=== PATIENT | female | born 1940 | race Caucasian/White ===

== ENCOUNTER 2023-11-14 23:17 | Inpatient (IN) | payer OTHER, SELFPAY ==
[2023-11-14] VITALS (9 sets, daily range): BP systolic 133–191; BP diastolic 73–118; BMI 34.5
[2023-11-14 18:19] LABS: % Basophils 1.1 % (0-2); % Eosinophils 2.5 % (0-6); % Immature Granulocytes 0.3 % (0-0.5); % Lymphocytes 34.7 % (20.5-51.1); % Monocytes 5.1 % (1.7-9.3); % Neutrophils 56.3 % (42.2-75.2); Absolute Basophils 0.1 10^3/uL (0-0.2); Absolute Eosinophils 0.2 10^3/uL (0-0.7); Absolute Lymphocytes 2.2 10^3/uL (1.2-3.4); Absolute Monocytes 0.3 10^3/uL (0.1-0.6); Absolute Neutrophils 3.6 10^3/uL (1.4-6.5); Hematocrit 31.4 % (37.0-47.0); Hemoglobin 11.3 g/dL (12.0-16.0); Mean Corpuscular Hgb 29.6 pg (27.0-31.0); Mean Corpuscular Volume 82.2 fL (81.0-99.0); Mean Platelet Volume 8.9 fL (7.4-10.4); Nucleated Red Blood Cells % 0 %; Platelet Count 150 10^3/uL (130-400); Red Blood Cell Count 3.82 10^6/uL (4.20-5.40); Red Cell Dist. Width 13.4 % (11.5-14.5); White Blood Cell Count 6.3 10^3/uL (4.8-10.8)
[2023-11-14 18:41] LABS: ALT (SGPT) < 10 U/L (0-35); AST (SGOT) 25 U/L (14-36); Albumin 4.4 g/dl (3.5-5.0); Alkaline Phosphatase 100 U/L (38-126); Blood Urea Nitrogen 23 mg/dl (7-17); Calcium 10.1 mg/dl (8.4-10.2); Carbon Dioxide 22 mmol/L (22-30); Chloride 93 mmol/L (98-107); Estimated Creatinine Clearance 39 ml/min; Glucose 112 mg/dl (70-99); Potassium 4.1 mmol/L (3.5-5.1); Sodium 124 mmol/L (135-145); Total Bilirubin 0.6 mg/dl (0.2-1.3); eGFR 55.21
--- NOTE | 2023-11-14 19:49 | EDRN ---
Pt says she has had echoing and ringing in her ears for the past couple days. When pt speaks, she hears her voice echoing. Pt developed dizziness this afternoon and laid down then vomited. Since then, pt has had nausea and vomiting so she came to
the ED for evaluation. Pt denies cp, sob, abd pain, fever/chills/cough, urinary symptoms, change in appetite, hx of similar symptoms, headache, visual/speech disturbance, weakness. Moving head does not increase dizziness/nausea.
[2023-11-14 20:35] LABS: Urine Albumin Trace (Neg - Trace); Urine Bilirubin Negative (Negative); Urine Color Yellow; Urine Glucose Negative (Negative); Urine Ketone 1+ (Negative); Urine Leukocyte 2+ (Negative); Urine Nitrite Positive (Negative); Urine Occult Blood 2+ (Negative); Urine Urobilinogen Negative (Neg - 1+)
[2023-11-14 20:37] LABS: Urine Character Slightly Cloudy (Clear)
[2023-11-14 20:40] LABS: Osmolality Urine 420 mOsm/kg (300-900)
[2023-11-14 20:55] LABS: Urine Sodium 119 mmol/L (30-90)
[2023-11-14 20:58] LABS: Urine Bacteria Moderate (Negative); Urine Red Blood Cell 0-2 /HPF (0-2); Urine White Cell 50-60 /HPF (0-5)
[2023-11-14] MEDS: NSS 500 IV (21:03)
[2023-11-14] MEDS: ANTIVERT 25 MG PO (21:03)
--- NOTE | 2023-11-14 21:04 | ED.GENMED ---
History of Present Illness
General
Chief Complaint: Dizziness
Source: patient
Exam Limitations: none
Time Seen by Provider: 11/14/23 19:50
Nursing documentation reviewed up to this point in time: agreed with
History of Present Illness
History of Present Illness:
83-year-old female with past medical history of hypertension previous aortic valve replacement presenting to the emergency department with room spinning dizziness over the past day also had some echoing sensation to her ears bilaterally yesterday.
Had multiple episodes of vomiting today denies any diarrhea. Denies any numbness weakness change in vision or neck pain. Denies any injuries.
Review of Systems
Review of Systems
Allergies reviewed?: Yes
All Other Systems: ROS reviewed and negative except as documented in HPI and ROS
Phy Exam
Physical Exam
Physical Exam:
GENERAL: Alert , in no apparent distress
EYE: pupils equal and reactive no nystagmus
NECK: Supple, no significant adenopathy.
ENT: o/p clr, mmm.
CARDIAC: Regular rate and rhythm .
LUNGS: Clear breath sounds bilaterally, no acute respiratory distress, no wheezes/rales/rhonchi
ABDOMEN: Soft, without focal tenderness, no r/g, no cvat
NEUROLOGICAL: Alert and oriented, no focal neuro deficits 5-5 upper and lower extremity strength normal sensation when palpating bilaterally normal finger-nose and heel mercer no pronator drift
SKIN: Warm and dry, skin intact.
MUSCULOSKELETAL: No edema, well perfused.
PSYCH: Normal and appropriate interaction.
Course
Orders/Labs/Results
Orders:
Orders
11/14/23 18:05
Electrocardiogram (*1) Urgent
Reason for Study: Vertigo / Dizzy
EKG- Treatment ONCE
11/14/23 18:14
Complete Blood Count/With Diff Urgent
Comprehensive Metabolic Panel Urgent
11/14/23 20:23
Urinalysis Reflex To Culture Urgent
Date Specimen was Collected: 11/14/23
Time Specimen was Collected: 20:22
Urine Microscopic Reflex Cult Urgent
Urine Osmolality Random [Osmolality, Random Urine] Urgent
Date Specimen was Collected: 11/14/23
Time Specimen was Collected: 20:22
Urine Sodium Urgent
Date Specimen was Collected: 11/14/23
Time Specimen was Collected: 20:22
Urine Culture Urgent
DOROTHEA Source: U
Specimen Description:
Date Specimen was Collected: 11/14/23
Time Specimen was Collected: 20:
11/14/23 20:42
CT Head W/o Iv Contrast Urgent
Comment:
Reason For Exam: dizziness
Meclizine [Antivert] 25 mg PO NOW STA
11/14/23 20:43
0.9% Sodium Chloride 500 ml [Nss] 500 ml IV BOLUS
11/14/23 23:17
Admit/Transfer Patient As Directed
Co-Sign Provider:
Level of Care: Inpatient admission
Assign to:: Telemetry
Physician / Group: Nia
Diagnosis: Dizziness
Reason for Telemetry: Other
Other Reason for Telemetry: Electrolyte abnormality and dizziness
Date to Stop Telemetry: 11/16/23
Time to Stop Telemetry: 11:00
Reason for Hospitalization: Electrolyte abnormality and dizziness
Expected length of stay greater than two midnights?: Yes
ELOS- Estimated Length of Stay in days: 3
I certify the patient meets the requirements for IP care: Yes
11/14/23 23:18
Code Status As Directed
Resuscitation Status: Full Code
11/16/23 11:00
DC Protocol for Telemetry ONCE
Abnormal Lab Results
11/14/23 11/14/23
18:14 20:23
RBC 3.82 L 10^6/uL
(4.20-5.40)
Hgb 11.3 L g/dL
(12.0-16.0)
Hct 31.4 L %
(37.0-47.0)
Sodium 124 L mmol/L
(135-145)
Chloride 93 L mmol/L
(98-107)
BUN 23 H mg/dl
(7-17)
Glucose 112 H mg/dl
(70-99)
Urine Ketones 1+ A
(Negative)
Ur Occult Blood Reflex 2+ A
(Negative)
Urine Nitrite (Reflex) Positive A
(Negative)
Leukocyte Esterase Rfl 2+ A
(Negative)
Urine WBC (Reflex) 50-60 A /HPF
(0-5)
Urine Bacteria (Reflex) Moderate A
(Negative)
Urine Sodium 119 H mmol/L
(30-90)
11/14/23 18:14
11/14/23 18:14
Vital Signs
Initial and Last Documented VS:
Initial Vital Signs
Temp Pulse Resp BP Pulse Ox
98.5 F 83 16 186/76 97
11/14/23 18:06 11/14/23 18:06 11/14/23 18:06 11/14/23 18:06 11/14/23 18:06
Last Documented Vital Signs
Temp Pulse Resp BP Pulse Ox
98.5 F 81 15 143/87 99
11/14/23 18:06 11/14/23 23:00 11/14/23 23:00 11/14/23 23:00 11/14/23 19:30
MDM/Problems Addressed
MDM/Problems Addressed:
83-year-old female presenting to the emergency department with concerns of room spinning dizziness today made worse with motion and movement. Had episodes of vomiting earlier today. Had some mild symptoms yesterday as well. On arrival here blood
pressure is elevated but otherwise vital signs are normal. Labs showing low sodium level 124 and elevated BUN to creatinine ratio of 23:1. Patient was given fluids additionally was found to have findings potentially consistent with urinary tract
infection. She denies any specific urinary symptoms. EKG is normal. Patient was given meclizine for description of potential vertigo. Patient here with ongoing symptoms was given fluids CT scan without emergent findings. Concerning patient's
hyponatremia and ongoing symptoms plan to admit for further treatment and monitoring.
*Critical Care Note
Total Time (30-74mins, 75-104mins- exclusive of procedures): Not Applicable
ED Attending Note
-
Portions of this chart may have been created with voice recognition software.� Occasional wrong word or��sound alike� substitutions may have occurred due to the inherent limitations of voice recognition software.
Discharge Plan
Departure
Patient Disposition: Admit
Date of Disposition: 11/14/23
Time of Disposition: 23:37
Admit to: Telemetry
Admit to doctor: Bia
Presentation/result/management discussed w/ accepting MD/DO: Hospitalist
Patient with high blood pressure during this ER visit?: No
Condition: Good
Covid-19: Not Applicable
Discharge Problem:
Hyponatremia, Vertigo
Prescriptions:
No Action
losartan 25 mg Tablet
25 mg PO DAILY Qty: 1 0RF
Rx Instructions:
hold systolic blood pressure <135
Tylenol Ex Str Arthritis Pain
1,000 mg PO QID Qty: 0 0RF
ibuprofen [Advil] 200 mg Tablet
400 mg PO BIDPRN PRN (Reason: arthritis pain)
omeprazole 20 mg capsule,delayed release(DR/EC)
20 mg PO HS PRN (Reason: reflux)
Referrals:
Lucila Salgado MD [Family Provider] -
Interventions
Interventions:
*Risk Screen - Suicide Last Done: 11/14/23 18:06
*General Assessment Last Done: 11/14/23 18:06
*Neglect/Abuse Screening Last Done: 11/14/23 18:06
ED- Fall Risk Assessment Last Done: 11/14/23 19:44
*ED COVID-19 Vaccine History Last Done: 11/14/23 19:44
ED- Neurological Assessment Last Done: 11/14/23 19:44
ED- Cardiac Assessment Last Done: 11/14/23 19:44
Discharge Date and Time
Print Language: TAMAZIGHT
--- NOTE | 2023-11-14 23:12 | HPS.HSE ---
Family Physician
-
Family Physician: Lucila Salgado MD
Chief Complaint
-
Dizziness
History of Present Illness
83-year-old female who still lives independently alone by herself and ambulates with a walker with known history of radiation cystitis, endometrial cancer status post NELLI and BSO in 2005, presented to the hospital complaining of dizziness started
earlier this afternoon, admitted for the last couple days she has been hearing and echoing both ear without any tinnitus or ringing or hearing impairment no discharge, no cough or congestion or fever or chill or chest pain or any vision change or
weakness or numbness in extremity, she went to the library earlier today she was hearing more echo because of the quietness eventually went home, she does use sitting on the chair and try to get up getting somewhere and grab a walker and developed
the dizziness, eventually was able to go to her bedroom and lay on the bed she was still dizzy and have a couple episodes of nonbloody vomiting, denies chest pain or palpitation or any syncope. Currently asymptomatic and feels back to her baseline,
admits she has been eating drinking well, denies any increased urinary frequency.
Workup in ER concerning for UTI, hyponatremia and dehydration.
She is awake, alert and oriented x 3 hold appropriate conversation
Medical History
Past Medical History
Past Medical History: Reports Other
Additional Past Medical History:
Past medical history REVIEWED:
Stage III endometrial cancer status post NELLI and BSO with recurrence in a year later
Aortic valve stenosis status post aortic valve repair in 2016
Radiation enteritis
Radiation cystitis
Hypertension
Chronic hyponatremia
Peripheral neuropathy
Osteoarthritis status post bilateral knee replacement
Cholecystectomy
Cataract surgery
Mild macular degeneration
Social history: Lives at home independently, denies smoking drinks 1 bourbon drink nightly for long time
Family history: Reviewed and noncontributory
Past Surgical History: Reports Other
Social History
Unable to obtain full social history at this time due to: Other
Family History
Family History: Other
Allergies / Home Medications
Allergies reflects when Allergies were last updated in [employer].
Home Medications with original date entered in [employer]
Allergy/Medication List:
Allergies
Allergy/AdvReac Type Severity Reaction Status Date / Time
No Known Allergies Allergy Verified 11/14/23 18:06
Home Medications
Tylenol Ex Str Arthritis Pain 1,000 mg PO QID ##0 02/27/22
losartan 25 mg tablet 25 mg PO DAILY #1 tab 02/27/22
ibuprofen 200 mg tablet (Advil) 400 mg PO BIDPRN PRN arthritis pain 11/14/23
omeprazole 20 mg capsule,delayed release 20 mg PO HS PRN reflux 11/14/23
Review of Systems
-
A 12 point ROS was completed and negative except as noted: Yes
Physical Exam
Vital Signs
Vital Signs
Temp Pulse Resp BP Pulse Ox
98.5 F 81 15 143/87 99
11/14/23 18:06 11/14/23 23:00 11/14/23 23:00 11/14/23 23:00 11/14/23 19:30
Physical exam:
General: Awake, alert and oriented x3, not in distress and holds appropriate conversation.
HEENT: No active discharge, ecchymosis or bruising, moist lips, tongue and mucous membrane.
Eyes: No discharge or red conjunctiva, horizontal nystagmus when looking to the left, pupils are reactive and equal
Neck:Supple, no JVD no bruit no goiter.
Respiratory: Normal AP contour and diameter, normal chest wall movement, normal respiratory effort, no respiratory distress,
Lungs: Good air entry bilaterally, no wheezing or rhonchi, no rales or crackles
Heart: S1, S2 regular, normal rate, no added sound.
Gastrointestinal: Positive bowel sounds, soft, nontender, no guarding or rigidity or organomegaly
Musculoskeletal: , no chest wall abnormality or tenderness. All joints and extremities have good range of motion, no muscle tenderness or any joint swelling or tenderness.
Extremities: No pitting edema, good peripheral pulses, good range of motion
Skin: Warm and dry, no ulceration, normal color.
Neurological: Awake, alert and oriented x3, cranial nerve II-XII grossly intact, speech clear and comprehensive, good muscle tone, normal sensory and motor function, no facial droop, extension intention intact, cerebellar sign intact,
0
Psychiatric: Normal mood, normal thought and judgment, normal affect,
Physical Exam
General: Other
Laboratory Results
-
11/14/23 18:14
11/14/23 18:14
Laboratory Results
Total Bilirubin 0.6 mg/dl (0.2-1.3) 11/14/23 18:14
AST 25 U/L (14-36) 11/14/23 18:14
ALT < 10 U/L (0-35) 11/14/23 18:14
Alkaline Phosphatase 100 U/L (38-126) 11/14/23 18:14
EKG showed normal sinus rhythm rate around 70, first-degree AV block MD 232, QTc 455, left axis deviation,
Brain CT: Pending official report, please refer to radiologist report once available, currently per my evaluation there is no acute abnormalities
Data Reviewed
-
CT Scan: Image Personally Visualized and interpreted and Discussed with Patient
Medical Tests (Nuc Med, Echo, EKG etc): Image Personally Visualized and interpreted and Discussed with Patient
Lab Data: Labs Reviewed by me and Discussed with Patient
Old Records: Reviewed
Impression/Plan
-
IMPRESSION:
83-year-old female with history of hypertension, aortic valve replacement, presented to the hospital complaining of dizziness preceded by couple of days echoing in both., Scan concerning for benign positional vertigo, doubt a stroke or cardiac
causes also there is hyponatremia and UTI.
Dizziness likely secondary to benign positional vertigo especially echo in the both ear, doubt a stroke or TIA or cardiac causes
Hyponatremia
Urinary tract infection
Dehydration
History of aortic valve replacement
Hypertension
PLAN:
Cardiac monitoring
Normal saline at 75 mill per hour and recheck blood pressure and sodium level
Nephrology consult
PT OT
PT for vestibular
As discussed with the patient if not improving or symptoms return then may consider getting MRI brain but she is not interested she does not think she have any stroke which I agree with that.
IV Rocephin could be discontinued pending culture and sensitivity
Continue losartan monitor vital sign
Orthostatic blood pressure check
All discussed with the patient in detail expressed understanding
CODE STATUS full code
DVT prophylaxis is Lovenox
[2023-11-15] VITALS (9 sets, daily range): BP systolic 107–156; BP diastolic 49–80; PULSE 77–101; BMI 32.2
--- NOTE | 2023-11-15 01:30 | PTCARENOTE ---
Patient arrived from ED to 317-1 via stretcher, ambulated to bed with standby assist and walker. Patient is alert and oriented, no complaints at this time. Patient denies dizziness at this time, no N/V present. Denies pain. Patient initiated on
campus monitor #27 - SR with first degree/BBBC and PVCs noted. IVFs initiated and IV Rocephin started per MD orders. Patient comfortable in bed at this time, call sorto within reach, will continue to monitor.
[2023-11-15] MEDS: NSS 1000 IV ×2 (02:48→17:05)
[2023-11-15] MEDS: ROCEPHIN 1000 MG IV (02:48)
[2023-11-15] MEDS: STERILE WATER FOR INJECTION 10 ML IV (02:48)
[2023-11-15 03:19] LABS: Troponin I 0.078 ng/ml
--- NOTE | 2023-11-15 03:35 | PTCARENOTE ---
Addendum entered by Ashley Patten RN 11/15/23 03:49:
Cardiology consult placed by RONNI and will trend troponins. Patient is asymptomatic at this time. Continue to monitor.
Original Note:
First troponin drawn upon arrival and admission to unit. Ordered while in ED, no prior troponins ordered or drawn. Troponin resulted 0.078. Ordered Q6 hours x3. RONNI Gant notified.
--- NOTE | 2023-11-15 03:45 | W.PN.UPDATE ---
Update Note
Progress Note Update
Abnormal troponin result received 0.078, asymptomatic. Will trend troponin, EKG monitoring and will add cardiology consult.
--- NOTE | 2023-11-15 06:58 | W.PN.HOSP.TC ---
Today's Communication/Plan
-
cont abx for now
IVF as per nephro
ECHO pending
PT/OT
Assessment / Plan
Assessment / Plan
Physical Exam
General: No pallor, cyanosis, or jaundice.
HEENT: Throat clear. PERRLA Normocephalic atraumatic
NECK: Supple. No JVD Carotid Bruits
RESPIRATORY: Lungs clear to auscultation. No crackles wheezes stridor
CVS: S1, S2 normal. RRR. Systolic Murmur known to patient bioprosthetic valve
ABDOMEN: Soft, non-tender. No distension. BS+/normal.
EXTREMITIES: No peripheral cyanosis or edema.
AIR CONDITIONING SPECIALIST: AOx3
83-year-old female with history of hypertension, aortic valve replacement, presented to the hospital complaining of dizziness preceded by couple of days echoing in both., Scan concerning for benign positional vertigo, doubt a stroke or cardiac
causes also there is hyponatremia and UTI.
Dizziness likely secondary to benign positional vertigo especially echo in the both ear, doubt a stroke or TIA or cardiac causes
Hyponatremia
Urinary tract infection
Dehydration
History of aortic valve replacement
Hypertension
Likely Non-[place] related troponin elevation trend flatten at 0.092 chest pain free
PLAN:
Cardiac monitoring
significantly improved with IVF NS
Nephrology consult appreciated
PT OT pending
PT for vestibular therapy
Cardio eval appreciated ECHO pending
IV Rocephin could be discontinued pending culture and sensitivity
Continue losartan monitor vital sign
monitor Orthostatic blood pressure
CODE STATUS full code
DVT prophylaxis is Lovenox
I spent a total of 50 minutes with the patient or on the floor. More than 50% of this time involved counseling and coordination of care.
Anticipated Discharge: 24 - 48 hours
Subjective/Interval History
-
Date of Service: November 15, 2023
Reports dizziness resolved, significant improvement in overall symptoms. Denies chest pain.
Objective Data
-
Labs:
Laboratory Results
11/15/23
06:00
WBC Pending
Hgb Pending
Hct Pending
Plt Count Pending
Sodium Pending
Potassium Pending
Chloride Pending
Carbon Dioxide Pending
BUN Pending
Creatinine Pending
Glucose Pending
Calcium Pending
Vital Signs:
Vital Signs
Temp Pulse Resp BP Pulse Ox
97.9 F 81 16 146/80 97
11/15/23 03:17 11/15/23 03:17 11/15/23 03:17 11/15/23 03:17 11/15/23 03:17
I&O
11/13/23 11/14/23 11/15/23
06:59 06:59 06:59
Intake Total 120 / 120
Balance 120 / 120
[2023-11-15 07:56] LABS: % Basophils 0.9 % (0-2); % Eosinophils 1.1 % (0-6); % Immature Granulocytes 0.4 % (0-0.5); % Lymphocytes 19.3 % (20.5-51.1); % Monocytes 7.6 % (1.7-9.3); % Neutrophils 70.7 % (42.2-75.2); Absolute Basophils 0.1 10^3/uL (0-0.2); Absolute Eosinophils 0.1 10^3/uL (0-0.7); Absolute Lymphocytes 1.1 10^3/uL (1.2-3.4); Absolute Monocytes 0.4 10^3/uL (0.1-0.6); Hematocrit 32.1 % (37.0-47.0); Hemoglobin 11.3 g/dL (12.0-16.0); Mean Corp Hgb Conc. 35.2 g/dL (33.0-37.0); Mean Corpuscular Hgb 29.4 pg (27.0-31.0); Mean Corpuscular Volume 83.6 fL (81.0-99.0); Mean Platelet Volume 9.4 fL (7.4-10.4); Nucleated Red Blood Cells % 0 %; Platelet Count 156 10^3/uL (130-400); Red Blood Cell Count 3.84 10^6/uL (4.20-5.40); Red Cell Dist. Width 13.4 % (11.5-14.5); White Blood Cell Count 5.7 10^3/uL (4.8-10.8)
[2023-11-15 08:01] LABS: Blood Urea Nitrogen 18 mg/dl (7-17); Calcium 10.5 mg/dl (8.4-10.2); Carbon Dioxide 24 mmol/L (22-30); Chloride 99 mmol/L (98-107); Estimated Creatinine Clearance 48 ml/min; Glucose 91 mg/dl (70-99); Potassium 4.2 mmol/L (3.5-5.1); Sodium 134 mmol/L (135-145); eGFR > 60.00
[2023-11-15 08:11] LABS: Troponin I 0.091 ng/ml
[2023-11-15 08:30] LABS: TSH 1.05 uIU/ml (0.47-4.68)
[2023-11-15] MEDS: COZAAR 25 MG PO (08:37)
--- NOTE | 2023-11-15 12:23 | W.CON.NEPH ---
Consultation
-
Date/Time Consultation Requested: November 15, 2023 8 AM
Date/Time Consultation Performed: November 15, 2023 12 PM
Requesting Provider: Dr. Amezquita
Performing Provider: Dr. Rijoas
Reason for Consultation: Hyponatremia
Medical History
-
Chief Complaint: Nausea vomiting vertigo
History of Present Illness:
This is a 83-year-old female with known hypertension treated with a mild therapy regimen well-controlled, reflux on present therapy also well-controlled. She has open AVR which has not been a issue for her. She does not require chronic diuretic
therapy. She said that for a few days she began with echoing in both her ears. This then progressed to lightheadedness and dizziness. She felt rather poorly and called her [id number]. She did have several episodes of vomiting which was
nonbloody. She has not had diarrhea. Her oral intake and fluid intake did not change significantly although was somewhat decreased when she began vomiting. Because she still not feel good and lives alone she came to the emergency room for
evaluation. She was told that she likely had a urinary tract infection and was also noted to have hyponatremia with a sodium level of 124.
Past Medical History
Hypertension, open aortic valve repair, stage III endometrial cancer status post NELLI/BSO, radiation, hyponatremia, peripheral neuropathy, bilateral knee replacement, cholecystectomy, cataract surgery, macular degeneration
Social History
Tobacco: Non-Smoker
Alcohol: Daily
Family History
Family History: Not Pertinent
Allergies / Home Medications
Allergy/AdvReac Type Severity Reaction Status Date / Time
No Known Allergies Allergy Verified 11/14/23 18:06
�Medication �Instructions �Recorded �Confirmed �Type
losartan 25 mg tablet 25 mg PO DAILY #1 tab 02/27/22 11/14/23 Rx
ibuprofen 200 mg tablet (Advil) 400 mg PO BIDPRN PRN arthritis pain 11/14/23 11/14/23 History
omeprazole 20 mg capsule,delayed 20 mg PO HS PRN reflux 11/14/23 11/14/23 History
release
Tylenol Ex Str Arthritis Pain 1,000 mg PO QID Pain 11/15/23 11/14/23 History
Review of Systems
-
Vertigo has improved, lightheadedness has improved, no vomiting.
All other systems: Negative unless noted
Physical Exam
Vital Signs
Vital Signs
Temp Pulse Resp BP Pulse Ox
97.9 F 78 14 156/73 98
11/15/23 11:00 11/15/23 11:00 11/15/23 11:00 11/15/23 11:00 11/15/23 11:00
Lab Results
WBC 5.7 10^3/uL (4.8-10.8) 11/15/23 07:28
RBC 3.84 10^6/uL (4.20-5.40) L 11/15/23 07:28
Hgb 11.3 g/dL (12.0-16.0) L 11/15/23 07:28
Hct 32.1 % (37.0-47.0) L 11/15/23 07:28
Plt Count 156 10^3/uL (130-400) 11/15/23 07:28
Sodium 134 mmol/L (135-145) L D 11/15/23 07:27
Potassium 4.2 mmol/L (3.5-5.1) 11/15/23 07:27
Chloride 99 mmol/L (98-107) 11/15/23 07:27
Carbon Dioxide 24 mmol/L (22-30) 11/15/23 07:27
BUN 18 mg/dl (7-17) H 11/15/23 07:27
Creatinine 0.8 mg/dL (0.6-1.0) 11/15/23 07:27
eGFR > 60.00 11/15/23 07:27
Glucose 91 mg/dl (70-99) 11/15/23 07:27
Calcium 10.5 mg/dl (8.4-10.2) H 11/15/23 07:27
Albumin 4.4 g/dl (3.5-5.0) 11/14/23 18:14
Physical Exam
Patient is awake alert oriented and in no distress. Mood and affect were pleasant, insight and judgment were good. Pupils are equal round and reactive to light, extraocular movements are intact, sclera were anicteric. Hearing was normal, ears and
nose are intact. Oropharynx was clear. Neck was supple with trachea midline and no thyromegaly. Heart was regular rate and rhythm without rubs. Lower extremities without edema. Lungs were clear to auscultation bilaterally and with normal
excursion. Abdomen was soft, nontender, with normal active bowel sounds, and no hepatosplenomegaly. Skin was without rash and with normal turgor.
Data Reviewed
-
CT Scan: Report Reviewed by me (Head CT on November 14, 2023 shows no acute abnormalities, diffuse cortical atrophy)
Medical Tests (Nuc Med, Echo etc): Image Personally Visualized and interpreted (EKG on 11/14/2023 by my reading shows normal sinus rhythm, first-degree AV block, left axis deviation, left bundle branch block)
Labs: Labs Reviewed by me (Sodium 124, now 134, potassium 4.2, creatinine 0.8, calcium 10.5, urine osmolality 420, urine sodium 119, urinalysis with pH 6 specific gravity 1.010, 1+ ketone 2+ blood positive nitrate, 2+ leuk esterase, 50 white cells,
moderate bacteria, trace albumin)
Old Records: Reviewed (March 03, 2022 creatinine 133)
Assessment/Plan
-
Assessment
Hyponatremia
Vertigo, nausea
Elevated troponin
Open AVR
Hypertension
UTI
Plan
Her sodium level has improved with saline alone. This may be continued for now
Follow BMP
No fluid restriction required at this time
Limit NSAIDs
Antibiotics for UTI per primary team
For repeat echocardiogram given elevated troponin
--- NOTE | 2023-11-15 12:53 | CON.CAR ---
Consultation
Consultation Request
Date/Time Consultation Requested: 11/14/22 7:00AM
Date/Time Consultation Performed: 11/14/22 11:45AM
Requesting Provider: Baldomero Gant
Performing Provider: Darwin Swanson MD
Reason for Consultation: abn topronin
Medical History
-
Chief Complaint: dizziness
History of Present Illness:
83-year-old female with past medical history of bioprosthetic aortic valve replacement in 2016 presents to [facility] with nausea, dizziness, and a urinary tract infection. She has had the symptoms for 24 hours or so. She denies any chest
pains or shortness of breath. She had dizziness and felt like she had to lie down that started having some nausea and vomited. She denies any orthopnea, PND, or edema. Evaluation in the emergency room revealed hyponatremia and a troponin of 0.09.
She was given gentle hydration and started on antibiotics. Clinically she is feeling better. Cardiac cath prior to aortic valve replacement in 2016 revealed no significant coronary artery disease. She denies any palpitations or syncope. She has
no fevers or chills.
Past Medical History
Past Medical History: HTN and Other (Endometrial cancer with resultant radiation enteritis, bioprosthetic aortic valve replacement 2016, osteoarthritis, neuropathy)
Past Surgical History: Gynecological (Hysterectomy)
Social History
Tobacco: Non-Smoker
Alcohol: None
Drug: None
Living: With Family
Employment: Retired
Family History
Family History: Hypertension
Allergies / Home Medications
Allergy/AdvReac Type Severity Reaction Status Date / Time
No Known Allergies Allergy Verified 11/14/23 18:06
�Medication �Instructions �Recorded �Confirmed �Type
losartan 25 mg tablet 25 mg PO DAILY #1 tab 02/27/22 11/14/23 Rx
ibuprofen 200 mg tablet (Advil) 400 mg PO BIDPRN PRN arthritis pain 11/14/23 11/14/23 History
omeprazole 20 mg capsule,delayed 20 mg PO HS PRN reflux 11/14/23 11/14/23 History
release
Tylenol Ex Str Arthritis Pain 1,000 mg PO QID Pain 11/15/23 11/14/23 History
Review of Systems
-
History Source: Patient
Constitutional: Fatigue
EENT: No Symptoms
Respiratory: No Symptoms
Cardiac: No Symptoms
Abdomen/GI: Nausea and Vomiting
: No Symptoms
Musculoskeletal: No Symptoms
Skin: No Symptoms
Neurological: Dizzy
Endocrine: No Symptoms
Physical Exam
Vital Signs
Temp Pulse Resp BP Pulse Ox
97.9 F 78 14 156/73 98
11/15/23 11:00 11/15/23 11:00 11/15/23 11:00 11/15/23 11:00 11/15/23 11:00
Lab Results
11/15/23 07:28
11/15/23 07:27
Troponin I 0.091 ng/ml H* 11/15/23 07:28
Physical Exam
General: Well Developed, Well Nourished and No Apparent Distress
HEENT: Normocephalic
Respiratory: Clear and Non Labored Respirations
Cardiac: S1/S2, Regular Rhythm and Murmur (05/09 syst LSB)
GI: Soft, Non Tender and Non Distended
Musculoskeletal: No Clubbing and No Edema
Skin: Warm and Dry
Neuro: AO x 3
Hematologic/Lymphatic: No Lymphadenopathy
Psych: Calm
Impression / Plan
-
Assess:
Hyponatremia/dehydration
UTI
Nonischemic myocardial troponin elevation
Status post bioprosthetic AVR 2016 with septal myomectomy
Hypertension
History of endometrial cancer status post hysterectomy with radiation enteritis
Echo 09/22 EF 59%, mild mR, s/p AVR, mean gr 9, mild TR
Cath 2016, no significant coronary artery disease
Plan:
She presents with hyponatremia, UTI, and dizziness.
Continue antibiotics. Sodium is significantly improved.
Abnormal troponin is likely nonischemic myocardial injury. Will check echocardiogram in a.m. to reevaluate bioprosthetic aortic valve.
Continue losartan.
Data Reviewed
-
EKG: Report Reviewed by me
Medical Tests (Nuc Med, Echo etc): Report Reviewed by me
Labs: Labs Reviewed by me
Old Records: Reviewed
[2023-11-15 14:50] LABS: Troponin I 0.092 ng/ml
[2023-11-15] MEDS: LOVENOX 40 MG SC (17:05)
[2023-11-16] MEDS: STERILE WATER FOR INJECTION 10 ML IV (02:00)
[2023-11-16] MEDS: ROCEPHIN 1000 MG IV (02:00)
[2023-11-16 03:00] VITALS: BP 148/68
[2023-11-16 06:00] VITALS: BMI 32.5
[2023-11-16 07:00] VITALS: BP 141/64
[2023-11-16 07:20] LABS: Hematocrit 30.6 % (37.0-47.0); Hemoglobin 10.7 g/dL (12.0-16.0); Mean Corpuscular Hgb 29.5 pg (27.0-31.0); Mean Corpuscular Volume 84.3 fL (81.0-99.0); Mean Platelet Volume 9.6 fL (7.4-10.4); Platelet Count 146 10^3/uL (130-400); Red Blood Cell Count 3.63 10^6/uL (4.20-5.40); Red Cell Dist. Width 13.7 % (11.5-14.5); White Blood Cell Count 4.4 10^3/uL (4.8-10.8)
[2023-11-16] MEDS: COZAAR 25 MG PO (07:49)
[2023-11-16] MEDS: TYLENOL 650 MG PO ×2 (07:50→20:24)
[2023-11-16 08:01] LABS: Blood Urea Nitrogen 17 mg/dl (7-17); Calcium 9.8 mg/dl (8.4-10.2); Carbon Dioxide 22 mmol/L (22-30); Chloride 103 mmol/L (98-107); Estimated Creatinine Clearance 49 ml/min; Glucose 89 mg/dl (70-99); Magnesium 1.8 mg/dl (1.6-2.3); Phosphorus 3.2 mg/dl (2.5-4.5); Potassium 4.5 mmol/L (3.5-5.1); Sodium 133 mmol/L (135-145); eGFR > 60.00
--- NOTE | 2023-11-16 08:59 | W.PN.CARDCBS ---
Today's Communication / Plan
-
Echo pending
Med tx of nonMI trop
Impression / Plan
-
.
Impression:
Hyponatremia/dehydration
UTI
Nonischemic myocardial troponin elevation
Status post bioprosthetic AVR 2016 with septal myomectomy
Hypertension
History of endometrial cancer status post hysterectomy with radiation enteritis
Echo 09/22 EF 59%, mild mR, s/p AVR, mean gr 9, mild TR
Cath 2016, no significant coronary artery disease
Plan:
She presents with hyponatremia, UTI, and dizziness.
Continue antibiotics as per primary service.
Nephrology is following. Sodium is overall improving
Abnormal troponin is likely nonischemic myocardial injury. Trend until peak. Trop 0.092. Medical therapy.
Echo is pending to reeval bio AVR
Continue losartan. BP overall stable.
HPI: 83-year-old female with past medical history of bioprosthetic aortic valve replacement in 2016 presents to [facility] with nausea, dizziness, and a urinary tract infection. She has had the symptoms for 24 hours or so. She denies any
chest pains or shortness of breath. She had dizziness and felt like she had to lie down that started having some nausea and vomited. She denies any orthopnea, PND, or edema. Evaluation in the emergency room revealed hyponatremia and a troponin of
0.09. She was given gentle hydration and started on antibiotics. Clinically she is feeling better. Cardiac cath prior to aortic valve replacement in 2016 revealed no significant coronary artery disease. She denies any palpitations or syncope.
She has no fevers or chills.
Progress Note - Die Inspector
Subjective
Date of Service: November 16, 2023
Pt seen and examined. No complaints. No chest pain or shortness of breath.
Objective
Labs:
11/16/23 06:41
11/16/23 06:41
Labs
Hgb 10.7 g/dL (12.0-16.0) L 11/16/23 06:41
Hct 30.6 % (37.0-47.0) L 11/16/23 06:41
Plt Count 146 10^3/uL (130-400) 11/16/23 06:41
Sodium 133 mmol/L (135-145) L 11/16/23 06:41
Potassium 4.5 mmol/L (3.5-5.1) 11/16/23 06:41
BUN 17 mg/dl (7-17) 11/16/23 06:41
Creatinine 0.8 mg/dL (0.6-1.0) 11/16/23 06:41
Glucose 89 mg/dl (70-99) 11/16/23 06:41
Troponins
11/15/23 11/15/23 11/15/23
02:27 07:28 14:01
Troponin I 0.078 H* 0.091 H* 0.092 H*
Vital Signs and I&O:
Vital Signs
Temp Pulse Resp BP Pulse Ox
97.6 F 106 16 141/64 98
11/16/23 07:00 11/16/23 07:00 11/16/23 07:00 11/16/23 07:00 11/16/23 07:00
Vital Signs
Temp Pulse Resp BP Pulse Ox
97.6 F 106 16 141/64 98
11/16/23 07:00 11/16/23 07:00 11/16/23 07:00 11/16/23 07:00 11/16/23 07:00
Intake & Output
11/14/23 11/15/23 11/16/23 11/17/23
06:59 06:59 06:59 06:59
Intake Total 120 / 120 840 / 840
Balance 120 / 120 840 / 840
Physical Exam
Physical Exam
General: No acute distress, AAOX3
Neck: Negative JVD
Heart: Regular, Negative S3 positive S1/S2, Negative S4, No murmur
Lungs: CTA b/l, negative wheezes/rales/rhonchi
Abd: Positive BS, NT/ND, neg rebound/rigidity/guarding
Ext: Negative cyanosis/clubbing/edema
Neuro: nonfocal
[2023-11-16 09:14] LABS: Troponin I 0.066 ng/ml
[2023-11-16 11:00] VITALS: BP 137/83; BP 137/85; BP 151/82; BP 166/80; PULSE 65; PULSE 66; PULSE 74; PULSE 78; O2SAT 99
[2023-11-16 11:10] VITALS: BP 137/83; BP 151/82; BP 166/80; PULSE 61; PULSE 74; PULSE 78; O2SAT 97
--- NOTE | 2023-11-16 11:24 | CM ---
Reviewed the chart notes and spoke with the patient at the bedside. The patient resides alone in a first floor apartment with no steps to enter. The patient has in home: rolling walker, shower chair, shower grab bars, and a raised toilet seat.
The patient has had [facility] in the past and been to [facility]. The patient confirmed her pharmacy of choice is the [facility]. The patient is interested in [facility] services at discharge. CM continues to be available to patient/family and
is monitoring medical plan for needs at discharge.
Plan: Discharge to home with [facility] services. Referral sent.
--- NOTE | 2023-11-16 11:39 | W.PN.HOSP.TC ---
Today's Communication/Plan
-
monitor vitals
see plan
pt/ot
echo
awaiting urine cx
cw abx
Assessment / Plan
Assessment / Plan
Physical Exam
General: No pallor, cyanosis, or jaundice.
HEENT: Throat clear. PERRLA Normocephalic atraumatic
NECK: Supple. No JVD Carotid Bruits
RESPIRATORY: Lungs clear to auscultation. No crackles wheezes stridor
CVS: S1, S2 normal. RRR. Systolic Murmur known to patient bioprosthetic valve
ABDOMEN: Soft, non-tender. No distension. BS+/normal.
EXTREMITIES: No peripheral cyanosis or edema.
READINESS PARAPROFESSIONAL: AOx3
83-year-old female with history of hypertension, aortic valve replacement, presented to the hospital complaining of dizziness preceded by couple of days echoing in both., Scan concerning for benign positional vertigo, doubt a stroke or cardiac
causes also there is hyponatremia and UTI.
Dizziness likely secondary to benign positional vertigo especially echo in the both ear, doubt a stroke or TIA or cardiac causes
Hyponatremia
Urinary tract infection
Dehydration
History of aortic valve replacement
Hypertension
Likely Non ischemic myocardial injury related troponin elevation
PLAN:
Cardiac monitoring
significantly improved with IVF NS
Nephrology consult appreciated
PT OT pending
PT for vestibular therapy
Cardio eval appreciated ECHO pending
IV Rocephin could be discontinued pending culture and sensitivity; cx with gram neg taz; await final cx
Continue losartan monitor vital sign
monitor Orthostatic blood pressure
CODE STATUS full code
DVT prophylaxis is Lovenox
Anticipated Discharge: Within 24 hours
Subjective/Interval History
-
Date of Service: November 16, 2023
denies dizziness
Objective Data
-
Labs:
Laboratory Results
11/16/23
06:41
WBC 4.4 L
Hgb 10.7 L
Hct 30.6 L
Plt Count 146
Sodium 133 L
Potassium 4.5
Chloride 103
Carbon Dioxide 22
BUN 17
Creatinine 0.8
Glucose 89
Calcium 9.8
Vital Signs:
Vital Signs
Temp Pulse Resp BP Pulse Ox
97.8 F 106 16 141/64 98
11/16/23 11:00 11/16/23 07:00 11/16/23 07:00 11/16/23 07:00 11/16/23 07:00
I&O
11/15/23 11/16/23 11/17/23
06:59 06:59 06:59
Intake Total 120 / 120 840 / 840
Balance 120 / 120 840 / 840
--- NOTE | 2023-11-16 12:07 | W.PN.NEPH.PH ---
Today's Communication / Plan
-
- sign off
Assessment/Plan
-
Assessment
Hyponatremia
Vertigo, nausea
Elevated troponin
Open AVR
Hypertension
UTI
Plan
Na stable at 133, now off fluids
Encouraged high protein diet
No fluid restriction required at this time
Limit NSAIDs
Antibiotics for UTI per primary team
Echo per cardiology
Nephrology will sign off.
-
-
Date of Service: November 16, 2023
CC / HPI / ROS
-
Chief Complaint:
hyponatremia
History of Present Illness:
Na from 124 --> 134
Feeling well
Review of Systems:
pending echo
Labs
-
Labs:
WBC 4.4 10^3/uL (4.8-10.8) L 11/16/23 06:41
RBC 3.63 10^6/uL (4.20-5.40) L 11/16/23 06:41
Hgb 10.7 g/dL (12.0-16.0) L 11/16/23 06:41
Hct 30.6 % (37.0-47.0) L 11/16/23 06:41
Plt Count 146 10^3/uL (130-400) 11/16/23 06:41
Sodium 133 mmol/L (135-145) L 11/16/23 06:41
Potassium 4.5 mmol/L (3.5-5.1) 11/16/23 06:41
Chloride 103 mmol/L (98-107) 11/16/23 06:41
Carbon Dioxide 22 mmol/L (22-30) 11/16/23 06:41
BUN 17 mg/dl (7-17) 11/16/23 06:41
Creatinine 0.8 mg/dL (0.6-1.0) 11/16/23 06:41
eGFR > 60.00 11/16/23 06:41
Glucose 89 mg/dl (70-99) 11/16/23 06:41
Calcium 9.8 mg/dl (8.4-10.2) 11/16/23 06:41
Phosphorus 3.2 mg/dl (2.5-4.5) 11/16/23 06:41
Albumin 4.4 g/dl (3.5-5.0) 11/14/23 18:14
Physical Exam
-
Vital Signs:
Vital Signs
Temp Pulse Resp BP Pulse Ox
97.8 F 106 16 141/64 98
11/16/23 11:00 11/16/23 07:00 11/16/23 07:00 11/16/23 07:00 11/16/23 07:00
Cardiovascular:: Regular rate and rhythm (+ murmur)
Respiratory:: Bilateral: CTA
Lung Excursion:: Normal
Abdomen:: Nontender and Soft
Bowel Sounds:: Normal
Extremity Edema:: None: Bilateral:
Kate Catheter: No
[2023-11-16 15:00] VITALS: BP 112/44
[2023-11-16] MEDS: LOVENOX 40 MG SC (17:42)
[2023-11-16 23:01] VITALS: BP 136/61
[2023-11-17] MEDS: ROCEPHIN 1000 MG IV (01:41)
[2023-11-17] MEDS: STERILE WATER FOR INJECTION 10 ML IV (01:41)
[2023-11-17 07:29] VITALS: BP 141/66
[2023-11-17] MEDS: COZAAR 25 MG PO (07:47)
[2023-11-17] MEDS: TYLENOL 650 MG PO (07:52)
--- NOTE | 2023-11-17 10:54 | W.PN.HOSP.TC ---
Today's Communication/Plan
-
Monitor vital signs and see plan
Change antibiotics to oral and discharge
Patient will follow with cardiology outpatient
Time of discharge 38 minutes
Assessment / Plan
Assessment / Plan
Physical Exam
General: No pallor, cyanosis, or jaundice.
HEENT: Throat clear. PERRLA Normocephalic atraumatic
NECK: Supple. No JVD Carotid Bruits
RESPIRATORY: Lungs clear to auscultation. No crackles wheezes stridor
CVS: S1, S2 normal. RRR. Systolic Murmur known to patient bioprosthetic valve
ABDOMEN: Soft, non-tender. No distension. BS+/normal.
EXTREMITIES: No peripheral cyanosis or edema.
DIRECTOR FOUNDATION: AOx3
83-year-old female with history of hypertension, aortic valve replacement, presented to the hospital complaining of dizziness preceded by couple of days echoing in both., Scan concerning for benign positional vertigo, doubt a stroke or cardiac
causes also there is hyponatremia and UTI.
Dizziness likely secondary to benign positional vertigo especially echo in the both ear, doubt a stroke or TIA or cardiac causes
Hyponatremia
Urinary tract infection
Dehydration
History of aortic valve replacement
Hypertension
Likely Non ischemic myocardial injury related troponin elevation
PLAN:
Cardiac monitoring
significantly improved with IVF NS
Nephrology consult appreciated
PT OT rec home health
PT for vestibular therapy; symptoms resolved
Cardio eval appreciated;ECHO 11/16/2023: EF 55 to 60%, stage III diastolic dysfunction, moderate concentric LVH, at least moderate MR, status post bioprosthetic AVR with peak/mean gradients 23/12 mmHg, mild AR, moderate TR, PAP 45 mmHg
IV Rocephin could be discontinued pending culture and sensitivity; cx with ecoli; change antibiotics to p.o.
Continue losartan monitor vital sign
monitor Orthostatic blood pressure
CODE STATUS full code
DVT prophylaxis is Lovenox
Anticipated Discharge: Today
Subjective/Interval History
-
Date of Service: November 17, 2023
denies pain
Objective Data
-
Labs:
Laboratory Results
11/17/23
10:34
WBC Pending
Hgb Pending
Hct Pending
Plt Count Pending
Sodium Pending
Potassium Pending
Chloride Pending
Carbon Dioxide Pending
BUN Pending
Creatinine Pending
Glucose Pending
Calcium Pending
Vital Signs:
Vital Signs
Temp Pulse Resp BP Pulse Ox
97.8 F 85 18 141/66 97
11/17/23 07:29 11/17/23 07:47 11/17/23 07:29 11/17/23 07:47 11/17/23 07:29
I&O
11/16/23 11/17/23 11/18/23
06:59 06:59 06:59
Intake Total 840 / 840 600 / 600
Balance 840 / 840 600 / 600
[2023-11-17 11:00] LABS: Hematocrit 33.3 % (37.0-47.0); Hemoglobin 11.5 g/dL (12.0-16.0); Mean Corp Hgb Conc. 34.5 g/dL (33.0-37.0); Mean Corpuscular Hgb 30.1 pg (27.0-31.0); Mean Corpuscular Volume 87.2 fL (81.0-99.0); Mean Platelet Volume 9.3 fL (7.4-10.4); Platelet Count 154 10^3/uL (130-400); Red Blood Cell Count 3.82 10^6/uL (4.20-5.40); Red Cell Dist. Width 13.8 % (11.5-14.5); White Blood Cell Count 5.2 10^3/uL (4.8-10.8)
[2023-11-17 11:29] LABS: Blood Urea Nitrogen 18 mg/dl (7-17); Calcium 10.4 mg/dl (8.4-10.2); Carbon Dioxide 26 mmol/L (22-30); Chloride 99 mmol/L (98-107); Estimated Creatinine Clearance 49 ml/min; Glucose 90 mg/dl (70-99); Magnesium 1.8 mg/dl (1.6-2.3); Phosphorus 3.1 mg/dl (2.5-4.5); Potassium 4.5 mmol/L (3.5-5.1); Sodium 133 mmol/L (135-145); eGFR > 60.00
[2023-11-17 11:43] VITALS: BP 156/76; BP 167/78; BP 176/83
--- NOTE | 2023-11-17 11:43 | VNURNOTE ---
Home Health Liaison met with patient at bedside to discuss [facility] nurse/therapy, visits, schedule and homebound status. Patient is agreeable and understands that visits at home will be 1-3 x per week to assess and teach medical management. Patient is
declining OT at this time.
[facility] brochure provided with contact information. Patient is aware that [facility] will contact them for start of carea few days after discharge from .
[facility] referral updated in [facility].
--- NOTE | 2023-11-17 11:47 | W.PN.CARDCBS ---
Addendum entered and electronically signed by Satya Iraheta MD 11/17/23 12:51:
I saw and examined the patient.
The SIGNAL MECHANIC or PA's note was reviewed and I agree with the note.
Comment: General: Well developed, well nourished in NAD.
Stable cardiology status for discharge. Discussed with patient in detail. Outpatient follow-up arranged.
Original Note:
Today's Communication / Plan
-
OP cardiac follow up arranged
ok for DC today
Impression / Plan
-
.
Impression:
Hyponatremia/dehydration
UTI
Nonischemic myocardial troponin elevation
Status post bioprosthetic AVR 2016 with septal myomectomy
Hypertension
History of endometrial cancer status post hysterectomy with radiation enteritis
Anemia
Echo 09/22 EF 59%, mild mR, s/p AVR, mean gr 9, mild TR
Cath 2016, no significant coronary artery disease
ECHO 11/16/2023: EF 55 to 60%, stage III diastolic dysfunction, moderate concentric LVH, at least moderate MR, status post bioprosthetic AVR with peak/mean gradients 23/12 mmHg, mild AR, moderate TR, PAP 45 mmHg
Plan:
-She presented with dizziness
-Found to have hyponatremia and UTI. Being treated by nephrology and primary service and patient reports feeling improved
-Cardiology consulted due to abnormal troponin, peak of 0.092, likely nonischemic myocardial injury. No chest discomfort reported by patient. EKG sinus rhythm with left bundle branch block
-would consider for baby asa however as with anemia, would plan to hold off for now
-echo with results as above, reviewed with patient, bioAVR stable appearing, MR possibly worse
-will discuss need for ischemic evaluation, further eval of MR as OP once recovered
-OP cardiac follow up arranged
HPI: 83-year-old female with past medical history of bioprosthetic aortic valve replacement in 2016 presents to [facility] with nausea, dizziness, and a urinary tract infection. She has had the symptoms for 24 hours or so. She denies any
chest pains or shortness of breath. She had dizziness and felt like she had to lie down that started having some nausea and vomited. She denies any orthopnea, PND, or edema. Evaluation in the emergency room revealed hyponatremia and a troponin of
0.09. She was given gentle hydration and started on antibiotics. Clinically she is feeling better. Cardiac cath prior to aortic valve replacement in 2016 revealed no significant coronary artery disease. She denies any palpitations or syncope.
She has no fevers or chills.
Progress Note - Drywall Hanger Helper
Subjective
Date of Service: November 17, 2023
Denies chest pain, shortness of breath. Feeling better. Eager for discharge
Objective
Labs:
11/17/23 10:34
11/17/23 10:34
Labs
Hgb 11.5 g/dL (12.0-16.0) L 11/17/23 10:34
Hct 33.3 % (37.0-47.0) L 11/17/23 10:34
Plt Count 154 10^3/uL (130-400) 11/17/23 10:34
Sodium 133 mmol/L (135-145) L 11/17/23 10:34
Potassium 4.5 mmol/L (3.5-5.1) 11/17/23 10:34
BUN 18 mg/dl (7-17) H 11/17/23 10:34
Creatinine 0.8 mg/dL (0.6-1.0) 11/17/23 10:34
Glucose 90 mg/dl (70-99) 11/17/23 10:34
Troponins
11/15/23 11/15/23 11/15/23
02:27 07:28 14:01
Troponin I 0.078 H* 0.091 H* 0.092 H*
11/16/23
08:29
Troponin I 0.066 H*
Vital Signs and I&O:
Vital Signs
Temp Pulse Resp BP Pulse Ox
97.8 F 85 18 141/66 97
11/17/23 07:29 11/17/23 07:47 11/17/23 07:29 11/17/23 07:47 11/17/23 07:29
Vital Signs
Temp Pulse Resp BP Pulse Ox
97.8 F 85 18 141/66 97
11/17/23 07:29 11/17/23 07:47 11/17/23 07:29 11/17/23 07:47 11/17/23 07:29
Intake & Output
11/15/23 11/16/23 11/17/23 11/18/23
07:59 07:59 07:59 07:59
Intake Total 120 / 120 840 / 840 600 / 600
Balance 120 / 120 840 / 840 600 / 600
Physical Exam
Physical Exam
GEN: No distress, awake, alert, oriented x3. sitting in chair
HEENT: supple, anicteric, mmm, eomi
LUNGS: CTA B/L, no wheezes/rales
CV: Reg, S1/S2, 2/6 syst LSB
EXT: No cyanosis, clubbing, edema
NEURO: Gross non-focal
SKIN: Warm, pink, dry. No rash
--- NOTE | 2023-11-17 12:13 | W.DCSUMMARY ---
Discharge Summary
Discharge Data
Date of Admission: 11/14/23
Date of Discharge: 11/17/23
-
Pending Results: No
Hospital Course
83-year-old female with past medical history of essential hypertension, aortic valve replacement came to the hospital with dizziness which was likely thought was secondary to benign paroxysmal positional vertigo. On this hospitalization patient
also had hyponatremia which was being followed up by nephrology. Her sodium continue to improve with fluids. She also had a urinary tract infection for which initially she was treated with IV antibiotic which were later transitioned to oral
antibiotics prior to discharge. Patient was seen by physical therapy who recommended home health. Patient was also seen by cardiology on this hospitalization. Echocardiogram was also done on this hospitalization which showed EF 55 to 60%, stage
III diastolic dysfunction and mitral regurgitation. Cardiology recommended patient to follow-up with them outpatient. Once patient symptoms continue to improve, she was then discharged home with instructions to follow-up with all her physicians
outpatient.
Discharge Plan
-
Patient Disposition: Home (Routine Discharge)
Discharge Diagnosis/Procedures: Dizziness likely secondary to benign paroxysmal positional vertigo
Hyponatremia
Urinary tract infection
Nonischemic myocardial injury
Diet: As tolerated
Activity: As tolerated
Driving Restrictions: As prior to admission
Bathing Restrictions: None
Referrals:
Kalani Del Rio PA-C [Specified Professional Personl] - 12/09/23 12:40 pm (You have a follow-up appointment at the [place] office with Dr. Baldwin's physician retail assistant, Kalani. Please call with questions)
Lucila Salgado MD [Family Provider] - in less than 1 week
Prescriptions:
New
cefdinir 300 mg capsule
300 mg PO BID Qty: 4 0RF
Continued
losartan 25 mg Tablet
25 mg PO DAILY Qty: 1 0RF
ibuprofen [Advil] 200 mg Tablet
400 mg PO BIDPRN PRN (Reason: arthritis pain)
omeprazole 20 mg capsule,delayed release(DR/EC)
20 mg PO DAILYPRN PRN (Reason: reflux)
acetaminophen [Tylenol Extra Strength] 500 mg Tablet
1,000 mg PO BIDPRN PRN (Reason: mildpain)
Discharge Orders:
Discharge Patient (As Directed); Ordered 11/17/23
Ordered By: Amadou Harris
Discharge Date and Time
Discharge Date/Time: 11/17/23 15:57
Print Language: ISRAELI
--- NOTE | 2023-11-17 12:37 | CM ---
CM reviewed chart and noted dc order
Bedside meeting with pt
Plan for home with [facility]- pt accepted for service
IMM verbally reviewed- copy provided
Pt alerted family and son will arrive approx 1600 for transport home
[facility] notified of dc
VN order requested
Discharge Disposition- home with [facility]- family transport
[2023-11-17 13:34] VITALS: BP 166/89
== END 2023-11-17 15:57 | disposition home health service (06) | DRG 690 ==
LOC: 3 WEST ACU 23:17
PROVIDERS: Internal Medicine; Physician Assistant; ADMITTING PHYSICIAN Internal Medicine; ATTENDING PHYSICIAN Internal Medicine; CONSULT PHYSICIAN Internal Medicine Cardiovascular Disease; CONSULT PHYSICIAN Specialist; EMERGENCY PHYSICIAN Student in an Organized Health Care Education/Training Program; FAMILY PHYSICIAN Family Medicine
DX: N39.0 Urinary tract infection, site not specified (principal); E87.1 Hypo-osmolality and hyponatremia; I5A Non-ischemic myocardial injury (non-traumatic); H81.10 Benign paroxysmal vertigo, unspecified ear
CPT/HCPCS: 70450; 80048; 80053; 81003; 81015; 83735; 83935; 84100; 84300; 84443; 84484; 85025; 85027; 87077; 87086; 87186; 93005; 93306; 96360; 97162; 97166; 97530; 99285

== ENCOUNTER → 2024-03-07 11:15 | Outpatient (REF) | payer OTHER, SELFPAY | LOC: RAD 11:15 | PROVIDERS: ATTENDING PHYSICIAN Nurse Practitioner Adult Health; FAMILY PHYSICIAN Family Medicine | DX: N39.0 Urinary tract infection, site not specified (principal) | CPT/HCPCS: 76770 ==

== ENCOUNTER 2024-11-16 15:55 | Inpatient (IN) | payer OTHER, SELFPAY ==
[2024-11-16 12:41] VITALS: BMI 33.2
[2024-11-16 13:15] VITALS: BP 122/62
[2024-11-16 13:29] VITALS: BP 122/62
[2024-11-16 14:04] LABS: Hematocrit 37.9 % (37.0-47.0); Hemoglobin 12.9 g/dL (12.0-16.0); Mean Corp Hgb Conc. 34.0 g/dL (33.0-37.0); Mean Corpuscular Volume 84.4 fL (81.0-99.0); Nucleated Red Blood Cells % 0 %; Platelet Count 168 10^3/uL (130-400); Red Cell Dist. Width 13.9 % (11.5-14.5)
--- NOTE | 2024-11-16 14:12 | ED.GENMED ---
History of Present Illness
General
Chief Complaint: Abdominal Symptoms
Time Seen by Provider: 11/16/24 13:07
History of Present Illness
History of Present Illness:
84-year-old female presents to the emergency department for evaluation of nausea, vomiting, and generalized weakness. Vomited for at least the past 2 days and has apparently been increasingly weak for the past 7 days. She slid off of a chair today
and EMS was called by deliveryman that she could not get up. She denies any pain at this point. No reported fevers.
Review of Systems
Review of Systems
Allergies reviewed?: Yes
All Other Systems: ROS reviewed and negative except as documented in HPI and ROS
Phy Exam
Physical Exam
Physical Exam:
GEN: Well appearing, NAD, WDWN
HEENT: Oral mucosa moist, no scleral icterus
Cardiac: Regular rate and rhythm, no murmur, occasional extrasystoles
Lung: No respiratory distress, no tachypnea
Abdomen: Soft, grossly nontender
MSK: No gross deformity or injuries
Skin: Good color, no pallor or jaundice, no rashes
Neuro: AO x3, moves all extremities freely, cranial nerves II through XII grossly intact
Psych: Calm, cooperative
Course
Orders/Labs/Results
Orders:
Orders
11/16/24 12:48
Electrocardiogram (*1) Urgent
Reason for Study: Abdominal Pain
EKG- Treatment ONCE
11/16/24 13:33
CR Chest - 2 Views Urgent
Comment:
Reason For Exam: cough
11/16/24 13:57
Complete Blood Count/With Diff Urgent
Comprehensive Metabolic Panel Urgent
Urinalysis Reflex To Culture Urgent
Date Specimen was Collected: 11/16/24
Time Specimen was Collected: 13:36
Urine Microscopic Reflex Cult Urgent
Urine Culture Urgent
DOROTHEA Source: U
Specimen Description:
Date Specimen was Collected: 11/16/24
Time Specimen was Collected: 13:36
11/16/24 15:01
CefTRIAXone [Rocephin] 1,000 mg IV NOW STA
Abnormal Lab Results
11/16/24
13:57
Absolute Neuts (auto) 9.0 H 10^3/uL
(1.4-6.5)
Absolute Lymphs (auto) 0.9 L 10^3/uL
(1.2-3.4)
Neutrophils % 86.6 H %
(42.2-75.2)
Lymphocytes % 8.2 L %
(20.5-51.1)
Sodium 130 L mmol/L
(135-145)
BUN 20 H mg/dl
(7-17)
Glucose 104 H mg/dl
(70-99)
Calcium 10.6 H mg/dl
(8.4-10.2)
Urine Ketones 2+ A
(Negative)
Ur Occult Blood Reflex 2+ A
(Negative)
Leukocyte Esterase Rfl 3+ A
(Negative)
Urine WBC (Reflex) 90-100 A /HPF
(0-5)
Urine Bacteria (Reflex) Many A
(Negative)
Urine Albumin (Reflex) 2+ A
(Neg - Trace)
11/16/24 13:57
11/16/24 13:57
Vital Signs
Initial and Last Documented VS:
Initial Vital Signs
Pulse Resp BP Pulse Ox
85 17 122/62 97
11/16/24 13:15 11/16/24 13:15 11/16/24 13:15 11/16/24 13:15
Last Documented Vital Signs
Temp Pulse Resp BP Pulse Ox
98.2 F 79 20 122/62 97
11/16/24 13:29 11/16/24 14:00 11/16/24 14:00 11/16/24 13:29 11/16/24 14:13
MDM/Problems Addressed
MDM/Problems Addressed:
Urinalysis grossly positive, prior history of E. coli UTI. Also note chest x-ray with subtle finding that could represent pneumonia, will treat with third-generation cephalosporin. She is to functionally decline at this point to be recently
discharged this will admit for IV antibiotics and further management
*Pulse Oximetry
SaO2: 97
Oxygen Mode of Delivery: Room air
Patient hypoxic: no
*Critical Care Note
Total Time (30-74mins, 75-104mins- exclusive of procedures): Not Applicable
ED Attending Note
-
Portions of this chart may have been created with voice recognition software.� Occasional wrong word or��sound alike� substitutions may have occurred due to the inherent limitations of voice recognition software.
Discharge Plan
Departure
Patient Disposition: Admit
Date of Disposition: 11/16/24
Time of Disposition: 15:02
Admit to: Med/Surg
Presentation/result/management discussed w/ accepting MD/DO: Hospitalist
Discharge Problem:
Urinary tract infection, Acute metabolic encephalopathy
Prescriptions:
No Action
losartan 25 mg Tablet
25 mg PO DAILY Qty: 1 0RF
ibuprofen [Advil] 200 mg Tablet
400 mg PO BIDPRN PRN (Reason: arthritis pain)
omeprazole 20 mg capsule,delayed release(DR/EC)
20 mg PO DAILYPRN PRN (Reason: reflux)
acetaminophen [Tylenol Extra Strength] 500 mg Tablet
1,000 mg PO BIDPRN PRN (Reason: mildpain)
cefdinir 300 mg capsule
300 mg PO BID Qty: 4 0RF
Referrals:
Lucila Salgado MD [Family Provider, Family Practice]
Interventions
Interventions:
*Risk Screen - Suicide Last Done: 11/16/24 12:43
*General Assessment Last Done: 11/16/24 13:17
*Neglect/Abuse Screening Last Done: 11/16/24 12:43
*ED- Fall Risk Assessment Last Done: 11/16/24 13:17
AN-Xmgxoi-Ugidzuwtfz Assessment Last Done: 11/16/24 13:17
Discharge Date and Time
Print Language: SRI LANKAN
[2024-11-16 14:22] LABS: Urine Character Slightly Cloudy (Clear)
[2024-11-16 14:23] LABS: ALT (SGPT) < 10 U/L (0-35); AST (SGOT) 24 U/L (14-36); Albumin 4.6 g/dl (3.5-5.0); Alkaline Phosphatase 100 U/L (38-126); Blood Urea Nitrogen 20 mg/dl (7-17); Calcium 10.6 mg/dl (8.4-10.2); Carbon Dioxide 26 mmol/L (22-30); Chloride 99 mmol/L (98-107); Estimated Creatinine Clearance 46 ml/min; Glucose 104 mg/dl (70-99); Potassium 4.5 mmol/L (3.5-5.1); Sodium 130 mmol/L (135-145); Total Protein 7.8 g/dl (6.3-8.2); eGFR > 60.00
[2024-11-16 14:54] LABS: Urine Red Blood Cell 0-2 /HPF (0-2); Urine White Cell 90-100 /HPF (0-5)
--- NOTE | 2024-11-16 15:04 | HPS.HSE ---
Addendum entered and electronically signed by Raymundo Cummings MD 11/16/24 15:50:
I saw and examined the patient.
The POPCORN VENDOR's note was reviewed and I agree with the note.
Comment:
84-year-old female past medical history of primary hypertension, recurrent urinary tract infection, endometrial cancer, breast cancer, CKD, GERD who is presenting from home with generalized weakness. Patient's been complaining of cough for the past
10 days with yellow phlegm. No fevers or chills. Denies any sick contact. Vomited yesterday. No abdominal pain or diarrhea. Also feeling lightheadedness upon standing up. Denies any chest pain, shortness of breath or palpitations. Denies any
dysuria or increasing urgency or hematuria. Patient states she had multiple episode of urinary tract infection and also followed up with urology as outpatient. Daughter at bedside also stated patient with possibly some fogginess of mentation as
baseline patient is awake alert and oriented. At home he walks with a walker.
General: Well Developed, Well Nourished and No Apparent Distress
HEENT: NormoCephalic, Moist mucous membranes and Atraumatic
Respiratory: Clear
Cardiac: S1/S2 and Regular Rhythm; No Murmur or Rub
GI: Soft, Non Tender, Non Distended and Normal Bowel Sounds; No Organomegaly
Musculoskeletal: No Clubbing, No Cyanosis and No Edema
Skin: No Rash
Neuro: AO x 3 and Nonfocal/grossly intact
Psych: Calm
A/P
Generalized weakness and fatigue likely multifactorial
Suspect urinary tract infection
Suspected pneumonia
Primary hypertension
Chronic hyponatremia
Chronic HFpEF
History of aortic valve replacement
Plan
Start patient on IV fluid resuscitation
Check sputum sample
Start patient on ceftriaxone
Follow-up on the urine culture results
Hold losartan
Check abdominal x-ray
Monitor for diet tolerance
Trend BMP
Check orthostatics
Physical therapy evaluation in the morning
DVT prophylaxis
DNR
Discussed case in detail with patient daughter at bedside. All question answered to her satisfaction.
I spent a total of 80 minutes with the patient or on the floor. More than 50% of this time involved counseling and coordination of care.
Original Note:
Family Physician
-
Family Physician: Lucila Salgado MD
Chief Complaint
-
cough
generalized wakness
History of Present Illness
84-year-old female with PMH for breast cancer,Stage III CKD,Hypertension presents to the emergency department for evaluation of nausea, vomiting, and generalized weakness for past one week. patient had productive cough with yellowish sputum since
November 04. she vomited once yesterday. denied abdominal pain or diarrhea. denied fever, chills, chest pain, sob. today she slid of the chair, and was not able to get up. she complained of lightheaded. . denied GROVES. denied chest pain. denied dysuria,
hematuria, urinary urgency and frequency.
chest x ray with pneumonia. positive UA. received a dose of ceftriaxone. admitting for further management.
Medical History
Past Medical History
Past Medical History: Reports Other
Additional Past Medical History:
Endometrial cancer
Breast cancer
Intervertebral stenosis
Anterior vascular block
Stage III CKD
Hypertension
GERD
Peripheral neuropathy
Diastolic heart failure
Supraventricular tachycardia
Past Surgical History: Reports Other
Additional Past Surgical History:
Aortic valve replacement
[facility]
Bilateral knee replacement
Cholecystectomy
Cataract surgery
Social History
Tobacco: Non-smoker
Alcohol: None
Drug: None
Personal: Single
Living: Alone
Family History
Family History: Not pertinent
Allergies / Home Medications
Allergies reflects when Allergies were last updated in [facility].
Home Medications with original date entered in [facility]
Allergy/Medication List:
Allergies
Allergy/AdvReac Type Severity Reaction Status Date / Time
No Known Allergies Allergy Verified 11/16/24 12:47
Home Medications
losartan 25 mg tablet 25 mg PO DAILY #1 tab 02/27/22
ibuprofen 200 mg tablet (Advil) 400 mg PO BIDPRN PRN arthritis pain 11/14/23
omeprazole 20 mg capsule,delayed release 20 mg PO QPMPRN PRN reflux 11/14/23
Review of Systems
-
Constitutional: Reports No Symptoms
EENT: Reports No Symptoms
Respiratory: Reports Cough
Cardiac: Reports No Symptoms
Abdomen/GI: Reports Nausea
: Reports No Symptoms
Musculoskeletal: Reports No Symptoms
Skin: Reports No Symptoms
Neurological: Reports Weakness
Endocrine: Reports No Symptoms
Hematologic/Lymphatic: Reports No Symptoms
Psych: Reports No Symptoms
Physical Exam
Vital Signs
Vital Signs
Temp Pulse Resp BP Pulse Ox
98.2 F 79 20 122/62 97
11/16/24 13:29 11/16/24 14:00 11/16/24 14:00 11/16/24 13:29 11/16/24 14:13
Physical Exam
General: Well Developed, Well Nourished and No Apparent Distress
HEENT: NormoCephalic, Moist mucous membranes and Atraumatic
Respiratory: Clear
Cardiac: S1/S2 and Regular Rhythm; No Murmur or Rub
GI: Soft, Non Tender, Non Distended and Normal Bowel Sounds; No Organomegaly
Rectal: Deferred by Provider
Musculoskeletal: No Clubbing, No Cyanosis and No Edema
Skin: No Rash
Neuro: AO x 3 and Nonfocal/grossly intact
Psych: Calm
Laboratory Results
-
11/16/24 13:57
11/16/24 13:57
Laboratory Results
Total Bilirubin 1.2 mg/dl (0.2-1.3) 11/16/24 13:57
AST 24 U/L (14-36) 11/16/24 13:57
ALT < 10 U/L (0-35) 11/16/24 13:57
Alkaline Phosphatase 100 U/L (38-126) 11/16/24 13:57
Data Reviewed
-
Diagnostic Radiology: Report Reviewed by me
Lab Data: Labs Reviewed by me
Impression/Plan
-
#UTI
-iv ceftriaxone continued
-urine culture pending
-hxt of E coli UTI
#generalized weakness/ambulatory dysfunction likely secondary to UTI/pneumonia
-PT/OT consulted
#Chronic hyponatremia
- Sodium 130
- Continue to monitor BMP
possible pneumonia
- Chest x-ray with impression of Subtle/questionable opacity within the left upper lobe which could represent pneumonia in the appropriate clinical context.
-iv ceftriaxone
-Mucinex for cough
-obtain stool culture, urine legionella and strep pneumoniae
#essential HTN
-losartan held
#DVT prophylaxis
-Lovenox
#CODE status
-DNR
-
[2024-11-16 15:12] VITALS: BP 132/107
[2024-11-16] MEDS: ROCEPHIN 1000 MG IV (15:57)
--- NOTE | 2024-11-16 16:02 | CM ---
Reviewed the chart notes and spoke with the patient and her daughter at the bedside. Patient resides alone in a first floor apartment with no steps to enter. The patient has a rolling walker, shower chair, shower rail, and a raised toilet. The
patient has had [facility] in the past and been to [facility]. The patient confirmed her pharmacy of choice is [facility] [address]. continues to be available to patient/family and is monitoring medical plan for needs at discharge.
Plan: Discharge plans will depend on the patient's progress.
[2024-11-16 17:01] VITALS: BMI 32.4
[2024-11-16 17:05] VITALS: BP 131/64
[2024-11-16] MEDS: NSS 1000 IV (18:07)
[2024-11-16] MEDS: LOVENOX 40 MG SC (18:07)
--- NOTE | 2024-11-16 18:39 | PTCARENOTE ---
Received pt from ED at 1715. Pt did a stand pivot from stretcher to walker. Pt VSS, on tele, oriented to unit, and assessed. No current complaints. Plan of care ongoing.
[2024-11-16] MEDS: MUCINEX 600 MG PO (20:01)
[2024-11-16 20:10] VITALS: BP 124/59
[2024-11-16 22:27] VITALS: BP 127/73
[2024-11-17] VITALS (21 sets, daily range): BP systolic 105–152; BP diastolic 54–91; PULSE 92–101; O2SAT 94
[2024-11-17] MEDS: NSS 1000 IV (03:32)
[2024-11-17 07:33] LABS: Blood Urea Nitrogen 19 mg/dl (7-17); Calcium 9.4 mg/dl (8.4-10.2); Carbon Dioxide 24 mmol/L (22-30); Chloride 105 mmol/L (98-107); Estimated Creatinine Clearance 41 ml/min; Glucose 81 mg/dl (70-99); Potassium 4.5 mmol/L (3.5-5.1); Sodium 133 mmol/L (135-145); eGFR > 60.00
[2024-11-17] MEDS: MUCINEX 600 MG PO ×2 (08:47→22:47)
--- NOTE | 2024-11-17 11:51 | W.PN.HOSP.TC ---
Today's Communication/Plan
-
Continue with IV ceftriaxone plus p.o. Doxy added
Follow-up on the urine culture.
Sputum sample pending
New onset of A-fib cards input
Toprol started
Continue to monitor on telemetry
Assessment / Plan
Assessment / Plan
# Suspected UTI
-iv ceftriaxone continued
-urine culture pending
-hxt of E coli UTI
# Seems new onset of atrial fibrillation rate controlled
EKG on admission and repeat this morning with atrial fibrillation
Heart rate controlled-low dose toprol
[id number] (Age, female, HTN, cardiomyopathy)
#generalized weakness/ambulatory dysfunction likely secondary to UTI/pneumonia/?new onset of afib
-PT/OT consulted
#Chronic hyponatremia
- Sodium improved
- Continue to monitor BMP
possible pneumonia
- Chest x-ray with impression of Subtle/questionable opacity within the left upper lobe which could represent pneumonia in the appropriate clinical context.
-iv ceftriaxone
-Mucinex for cough
-obtain stool culture, urine legionella and strep pneumoniae
#essential HTN
-losartan held
#DVT prophylaxis
-Lovenox
#CODE status
-DNR
PT eval
-
Anticipated Discharge: > 48 hours
Subjective/Interval History
-
Date of Service: November 17, 2024
Denies lightheadedness this morning
Afebrile overnight
Objective Data
-
Labs:
Laboratory Results
11/17/24
06:18
Sodium 133 L
Potassium 4.5
Chloride 105
Carbon Dioxide 24
BUN 19 H
Creatinine 0.9
Glucose 81
Calcium 9.4
Vital Signs:
Vital Signs
Temp Pulse Resp BP Pulse Ox
98.7 F 73 18 138/67 96
11/17/24 08:01 11/17/24 08:01 11/17/24 08:01 11/17/24 08:01 11/17/24 08:01
Physical Exam
-
General: Well Developed and No Apparent Distress
HEENT: Normocephalic, Atraumatic and Moist Mucous Membranes
Respiratory: Clear to Auscultation
Cardiac: S1/S2, Irregular Rhythm and Murmur; Negative Rub or Gallop
GI: Soft, Nontender, Nondistended and Normal Bowel Sounds; Negative Organomegaly
Rectal: Deferred by Provider
Musculoskeletal: No Clubbing, No Cyanosis and No Edema
Skin: Negative Rash
Neuro: Awake, No Motor Deficits and Nonfocal/Grossly Intact
Psych: Calm
Data Reviewed
-
Total Time Spent with Patient (in minutes): 55
[2024-11-17] MEDS: NSS IV (12:37)
[2024-11-17] MEDS: VIBRAMYCIN 100 MG PO ×2 (13:07→22:47)
[2024-11-17] MEDS: TOPROL XL 12.5 MG PO (13:08)
--- NOTE | 2024-11-17 14:04 | CON.CAR ---
Addendum entered and electronically signed by Satya Iraheta MD 11/17/24 14:44:
I saw and examined the patient.
The ENTRY LEVEL ASSISTANT MANAGER or PA's note was reviewed and I agree with the note.
Comment: General: Well developed, well nourished in NAD.
Neck: Supple, no JVD, HJR, carotids +2 B/L, no bruits bilaterally.
Heart: Non displaced PMI, RRR, 2/6 basal systolic murmur, No S3, S4, no rubs.
Lungs: Clear to auscultation bilaterally, no wheeze, rhonchi, rubs bilaterally,
normal expiratory phase.
Extremities: No clubbing, cyanosis or edema bilaterally.
Neuro: Grossly nonfocal, awake, alert and oriented x3.
Radha has a history of AVR with septal myomectomy in 2015 at [place], moderate MR in November 2023, hypertension, remote SVT, UTIs. She presented with nausea and vomiting as well as weakness. She reportedly slid out of a chair onto her floor at
home. Cardiology's consult for new onset atrial fibrillation. She denies any chest pain short breath or palpitations. She has not had any falls before this event.
She is in rate controlled atrial fibrillation at present. She should be anticoagulated with Eliquis. Will recheck echocardiogram and reassess MR's may make it difficult to keep in sinus rhythm. May consider outpatient cardioversion but unclear if
A-fib is anything to do with symptoms and likely asymptomatic.
Original Note:
Consultation
Consultation Request
Date/Time Consultation Performed: 11/17/24
Requesting Provider: Dr. Cummings
Performing Provider: Gricelda Tamayo PA-C for Dr. Iraheta
Reason for Consultation: afib
Medical History
-
Chief Complaint: N/V, weakness
History of Present Illness:
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
block, history of remote SVT. We had followed during admission 1 year ago for UTI and she had echo during that visit which showed preserved EF, and well-seated bioprosthetic AVR with moderate MR and moderate TR. She now presents back to [facility] with complaints of similar symptoms to last year's admission with nausea/vomiting as well as weakness. She reportedly slid out of a chair onto the floor at home. Again being treated for likely UTI. Cardiology consulted as noted by EKG to
be in A-fib with controlled ventricular response. She denies history of A-fib or atrial arrhythmia to her knowledge. She does not feel palpitations, chest pain, shortness of breath, lightheadedness. She is not on anticoagulation. She does have a
history of anemia but denies bleeding issues or falls in past
PMH:
Bioprosthetic aortic valve replacement with septal myomectomy 2016, [facility]
Moderate MR by echo 11/2023
Hypertension
History of remote SVT
LAFB
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
Chronic anemia
History of UTIs
Past Medical History
Past Medical History: Other (in HPI)
Social History
Tobacco: Non-Smoker
Alcohol: None
Living: Alone
Employment: Retired
Family History
Family History: Other (sister with afib)
Allergies / Home Medications
Allergy/AdvReac Type Severity Reaction Status Date / Time
No Known Allergies Allergy Verified 11/16/24 12:47
�Medication �Instructions �Recorded �Confirmed �Type
losartan 25 mg tablet 25 mg PO DAILY #1 tab 02/27/22 11/16/24 Rx
ibuprofen 200 mg tablet (Advil) 400 mg PO BIDPRN PRN arthritis pain 11/14/23 11/16/24 History
omeprazole 20 mg capsule,delayed 20 mg PO QPMPRN PRN reflux 11/14/23 11/16/24 History
release
Review of Systems
-
History Source: Patient
All other systems: Negative unless noted
Physical Exam
Vital Signs
Temp Pulse Resp BP Pulse Ox
98.9 F 94 14 105/54 96
11/17/24 12:36 11/17/24 12:36 11/17/24 12:36 11/17/24 12:36 11/17/24 12:36
Lab Results
11/16/24 13:57
11/17/24 06:18
Physical Exam
General: No Apparent Distress, Comfortable and Other (sitting in chair)
HEENT: Normocephalic, Anicteric and Moist Mucous Membranes
Respiratory: Clear and Non Labored Respirations
Cardiac: S1/S2, Irregular Rhythm and Murmur
GI: Soft, Non Tender, Non Distended and Normal Bowel Sounds
Musculoskeletal: No Clubbing, No Cyanosis and No Edema
Skin: Warm and Dry
Neuro: AO x 3
Impression / Plan
-
Primary Reading Professor: Dr. Nicolasa Miles
Assessment:
Presentation with nausea/vomiting, weakness
UTI
Possible pneumonia
Atrial fibrillation with controlled ventricular response, new diagnosis of unclear duration
Bioprosthetic aortic valve replacement with septal myomectomy 2016, [facility]
Moderate MR by echo 11/2023
Hypertension
History of remote SVT
LAFB
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
Chronic anemia
Chronic hyponatremia
History of UTIs
ECHO 11/16/23: EF 55 to 60%, moderate concentric LVH, stage III diastolic dysfunction, MAC, at least moderate MR, status post bioprosthetic AVR with peak/mean gradients 23/12 mmHg, mild AR, moderate TR, PAP 45 mmHg
Plan:
- Patient presents with nausea/vomiting and weakness and is being treated for UTI as well as possible pneumonia by CXR. Of note she has history of multiple UTIs in the past.
- Cardiology consulted as noted to be in atrial fibrillation with controlled ventricular response. This is a new diagnosis for patient of unclear duration as she is asymptomatic.
- Toprol 12.5 mg added per primary service
- Discussed anticoagulation with patient and she is agreeable to Eliquis 5 mg twice daily. Will initiate and have case management assess cost
- Last echo from 11/2023 with results as above, reviewed with patient 11/17. Will repeat to reassess EF as well as MR
- Check TSH
- If remains in A-fib as an outpatient, would consider for outpatient cardioversion
Data Reviewed
-
EKG: Tracing Personally Visualized and interpreted
Radiology: Report Reviewed by me
Medical Tests (Nuc Med, Echo etc): Report Reviewed by me
Labs: Labs Reviewed by me
Old Records: Reviewed
[2024-11-17] MEDS: ROCEPHIN 1000 MG IV (16:01)
[2024-11-17] MEDS: STERILE WATER FOR INJECTION 10 ML IV (16:01)
[2024-11-17 20:17] LABS: Glucose - Point of Care 117 mg/dl (70-99)
[2024-11-17 22:13] LABS: Glucose - Point of Care 98 mg/dl (70-99)
--- NOTE | 2024-11-17 22:17 | W.PN.UPDATE ---
Update Note
Progress Note Update
Rapid response TT received at 8:18 pm, pt w/left sided weakness and left side visual cut. Stroke alert called. Per patient's day shift RN, patient last know normal w/no deficits was 7 pm. NIH 6, (2 left arm, 2 left leg, left visual cut and ataxia).
Patient taken to CT scan, [facility] called, Telestroke evaluation completed by [facility], Dr. Kay Suarez. Risks and benefits evaluated by [facility], reviewed with patient. Recommended TNK be given to patient. Patient
transferred to ICU for TNK administration. See [facility] Consult Note. Updated patient's daughter, Matilde Jules, on events and transfer to ICU for medication administration and closer monitoring.
[2024-11-17] MEDS: TNKASE 3.8 MG IV (22:20)
--- NOTE | 2024-11-17 23:00 | PTCARENOTE ---
Pt admit to ICU. TNK administered at 2220. NIH initially 11. L sided deficits. Full hemianopia/visual cut, very mild facial droop, L arm partial vs gravity (improvement from when rapid first called), L leg partial vs. gravity, and sensory
inattention. Pt can feel L side, but cannot distinguish when b/l extremities are touched concurrently. Completely oriented. On RA.
[2024-11-18] VITALS (62 sets, daily range): BP systolic 105–173; BP diastolic 51–103
--- NOTE | 2024-11-18 01:01 | RR ---
A Rapid Response was called on this patient, please see Rapid Response form.
Patient seen at change of shift sitting in chair and eating dinner with son in room. This RN went in to assess patient and noticed the patient was leaning more on her left side. Patient was unable to hold left arm up, touch her finger to her nose
with her left hand, and her left sided vision was abnormal. This is not the patient's baseline. Stroke alert and rapid response called.
--- NOTE | 2024-11-18 02:36 | PTCARENOTE ---
Hematoma forming on pt's forehead w/ slight ecchymosis. NOVELTY TWISTER TENDER aware. NIH performed, improvements noted. Vision remains unchanged.
CT scan ordered - CT and back w/o complications.
[2024-11-18 04:35] LABS: Hematocrit 33.5 % (37.0-47.0); Hemoglobin 11.6 g/dL (12.0-16.0); Mean Corp Hgb Conc. 34.6 g/dL (33.0-37.0); Mean Corpuscular Volume 84.4 fL (81.0-99.0); Platelet Count 142 10^3/uL (130-400); Red Cell Dist. Width 14.4 % (11.5-14.5)
[2024-11-18 04:47] LABS: INR 1.04; PT 14.1 Sec (11.4-14.6)
[2024-11-18 04:48] LABS: APTT 34.3 Sec (23.4-35.0)
--- NOTE | 2024-11-18 04:53 | W.PN.UPDATE ---
Update Note
Progress Note Update
11/18/2024
0150- Patient developed half-dollar coin sized hematoma on forehead, with purple bruising. Patient denies headache or pain, in-fact neurological examination improved s/p TNK. Weakness improved left arm and leg, able to lift against gravity, left
facial droop improved, and minimal improvement in partial hemianopia. Patient without seizure or vomiting/nausea. Patient reports that she slid from the chair to the ground at home prior to her arrival on day of admission, denies ever hitting her
head or recent falls. Called [facility] stroke neurologist Dr. Dye, discussed hematoma finding and patient examination, recommendations received to obtain STAT CTscan of the head.
Ctscan report- there is concern for possible subarachnoid hemorrhage in the right temporoparietal lobe, bandlike density is not the typical appearance for a vessel. Suggestion attention on short term follow up imaging. Moderate periventricular and
subcortical regions of low attenuation likely representing chronic small vessel ischemic disease. Concern for evolving infarct in the right occipital lobe. Old left frontal lobe infarct. Small chronic appearing right cerebellar infarcts.
Called Dr. Dye, [facility] stroke neurologist about Ctscan findings and he also reviewed imaging. Recommendations as follows: maintain BP<180/105, continue q 30minute neuro checks, and repeat Ctscan head at 0730. Patient continues to deny headache,
nausea/vomiting.
[2024-11-18 05:05] LABS: Blood Urea Nitrogen 21 mg/dl (7-17); Calcium 9.9 mg/dl (8.4-10.2); Carbon Dioxide 22 mmol/L (22-30); Chloride 105 mmol/L (98-107); Estimated Creatinine Clearance 52 ml/min; Glucose 103 mg/dl (70-99); HDL Cholesterol 54 mg/dl; LDL Cholesterol, Calculated 94 mg/dl; Potassium 4.4 mmol/L (3.5-5.1); Sodium 131 mmol/L (135-145); Very Low Density Lipoprotein 17 mg/dl (0-30); eGFR > 60.00
--- NOTE | 2024-11-18 05:20 | PTCARENOTE ---
Pt bladder scanned for 467 at 0335. Pt strongly and repeatedly encouraged to void on own. Attempted on bedpan and purewick. Unsuccessful. Pt states she feels she just cannot get it out and this is unlike her. AIRLINE SECURITY REPRESENTATIVE aware.
New hematoma/ecchymosis at L arm IV site. AIRLINE SECURITY REPRESENTATIVE aware. Ice and compression therapy to site.
Straight cath x1 for 650
--- NOTE | 2024-11-18 07:17 | CON.INTV ---
Consultation
Consultation Request
Date/Time Consultation Requested: November 18, 2024
Date/Time Consultation Performed: November 18, 2024
Medical History
-
Chief Complaint: left sided weakness
History of Present Illness:
84 yo F admitted on 11/16/2024 for treatment of UTI. PMH is notable for recently diagnosed atrial fibrillation, not on anticoagulation.
On 11/17, around 20:00 stroke alert was called for L sided weakness. Last known normal was 19:00. CT head showed evidence of acute ischemia. After involving [facility], TNK was administered at 22:20, 11/17.
Overnight, neurological status was improved. However, a forehead hematoma developed. Repeat CT showed bleed near R temporoparietal lobe. Another CT at 11/18, 07:30 showed that the bleed became larger in same region.
The patient denies any hx of trauma or falls. But, chart review notes possible sliding down chair 1-2 days before she was admitted to hospital for UTI.
This morning, she reports a mild but improving headache (s/p acetaminophen), denies nausea/vomiting.
Additional context regarding atrial fibrillation: detected on 11/17/2024 while she was admitted. Cardiology was consulted, and the plan was to start apixaban 11/17 PM, but before administration of anticoagulant, she developed left-sided weakness,
hence prompting stroke alert.
Past Medical History
Past Medical History: Reports Other
Additional Past Medical History:
Endometrial cancer
Breast cancer
Intervertebral stenosis
Anterior vascular block
Stage III CKD
Hypertension
GERD
Peripheral neuropathy
Diastolic heart failure
Supraventricular tachycardia
Past Surgical History: Reports Other
Additional Past Surgical History:
Aortic valve replacement
[facility]
Bilateral knee replacement
Cholecystectomy
Cataract surgery
Social History
Tobacco: Non-smoker
Alcohol: None
Drug: None
Personal: Single
Living: Alone
Allergies / Home Medications
Allergies
Allergy/AdvReac Type Severity Reaction Status Date / Time
No Known Allergies Allergy Verified 11/16/24 12:47
Home Medications
�Medication �Instructions �Recorded �Confirmed �Last Taken �Type
losartan 25 mg tablet 25 mg PO DAILY #1 tab 02/27/22 11/16/24 11/16/24 Rx
ibuprofen 200 mg tablet (Advil) 400 mg PO BIDPRN PRN arthritis pain 11/14/23 11/16/24 11/15/24 History
omeprazole 20 mg capsule,delayed 20 mg PO QPMPRN PRN reflux 11/14/23 11/16/24 Unknown History
release
Review of Systems
-
History Source: Patient
Constitutional: No Symptoms
EENT: No Symptoms
Respiratory: No Symptoms
Cardiac: No Symptoms
Abdomen/GI: No Symptoms
: No Symptoms
Musculoskeletal: No Symptoms
Skin: No Symptoms
Neuro: Headache (mild, improving headache) and Weakness (left sided weakness)
Endocrine: No Symptoms
Hematologic/Lymphatic: No Symptoms
Vitals / Labs / Diagnostic Testing
Vital Signs
Temp Pulse Resp BP Pulse Ox
97.6 F 69 16 156/71 87
11/18/24 03:39 11/18/24 06:30 11/18/24 06:30 11/18/24 06:30 11/18/24 05:15
Lab Data
11/18/24 04:27
11/18/24 04:27
Laboratory Results
11/18/24
04:27
PT 14.1
INR 1.04
APTT 34.3
Labs:
WBC 9.7
Hgb 11.6
Na+ 131
Microbiology
11/16/24 13:57 Urine Urine Culture - Preliminary
Gram negative bacilli
11/16/24 00:00 Urine Legionella Urinary Antigen - Final
Negative for Legionella pneumophila Serogroup 1 antigen.
A negative result does not rule out the possiblity of
Legionella infection due to other serogroups or species of
Legionella. Clinical correlation is recommended.
11/16/24 00:00 Urine Streptococcus pneumoniae Antigen (M - Final
Negative for Streptococcus pneumoniae antigen.
A negative result does not exclude infection with
Streptococcus pneumoniae. Clinical correlation is
recommended.
UA:
leukocyte esterase 3+
90-100 WBCs
Diagnostic Testing:
Head CT: 11/17/2024, 20:27
IMPRESSION:
No acute intracranial abnormality.
There is an apparent perfusion abnormality within the right occipital lobe.
Head CT: 11/18/2024, 01:55
IMPRESSION:
Mild acute subarachnoid hemorrhage. New.
Few tiny foci suggesting acute intraparenchymal hemorrhages. New.
Findings suggesting a subacute right occipital lobe infarct.
Mild nonacute sinusitis. Stable
Small left frontal scalp hematoma. New
Head CT: 11/18/2024, 07:30
IMPRESSION:
New right temporal lobe acute intraparenchymal hemorrhage as described above.
Findings suggesting 2 small right thalamic acute intraparenchymal hemorrhages. Stable
Stable acute right sided subarachnoid hemorrhage.
Progressed findings suggesting subacute right occipital lobe infarct
Old left frontal lobe and right cerebellar infarcts. Stable
Mild periventricular small vessel ischemic disease. Stable
Small right frontal scalp hematoma. Stable.
Mild nonacute sinusitis. Stable
Physical Exam
-
HEENT: Other (forehead hematoma)
Cardiovascular: Regular Rhythm and Other (no murmurs on my exam, no lower extremity edema)
Respiratory: Clear
GI: Non Tender
Neurology: AO x 3 and Other (able to move all 4 extremities, left arm drift, left facial droop)
Skin: Warm
General: Comfortable
Assessment
-
84 yo F newly diagnosed atrial fibrillation not on anticoagulation, admitted for UTI and possible pneumonia, experienced left sided weakness most concerning for acute ischemic stroke, s/p TNK administration, complicated by intraparenchymal bleed in
brain.
# Ischemic Stroke
- she had left sided weakness and the first CT evaluation found ischemic evidence for stroke.
- TNK was given, with improvement in neurological status
- However, intraparenchymal bleed occurred as a result of TNK.
- Her vitals are within normal limits, she reports a mild but improving headache, and denies nausea/vomiting, reassuring against increased ICP/mass effect from the bleed.
- BP < 180/105 and no antiplatelet or anticoagulation for 24hrs.
- Neurology is following.
- Plan for repeat CT at 16:00, 11/18
# Forehead hematoma
- Most likely due to TNK administration
- Serial CT scans show hematoma as stable
# Atrial fibrillation
- On metoprolol this admission
- low-dose for permissive HTN given CVA
# UTI, pneumonia
- Ceftriaxone and doxycycline
Recommendations are not final until attending attestation/note
Data Reviewed
-
Radiology: Report reviewed by me
CT Scan: Report reviewed by me
--- NOTE | 2024-11-18 07:45 | W.PN.CARDCBS ---
Addendum entered and electronically signed by Oj Swanson MD 11/18/24 09:49:
I saw and examined the patient.
The Senior Financial Reporting Accountant's note was reviewed and I agree with the note.
Comment:
GEN: No distress, awake, Ox3
HEENT: supple, anicteric, mmm
LUNGS: CTA, no wheezes/rales
CV: Irreg, S1/S2, 1/6 syst LSB, no gallop
ABD: soft, BS+, NT/ND
EXT: No edema
NEURO: Very mild left-sided weakness with left hemianopsia
SKIN: No rash
PLan:
Still with some mild neurologic deficits but overall seems relatively stable.
I reviewed recent head CT from today we will get repeat later today. There is a right temporal small hemorrhage with decreased density in the right occipital.
Status post TNK yesterday from possible embolic source. Plan is for repeat head CT later today and tomorrow if bleeds are stable would consider aspirin first and then eventually Eliquis in the future but not at this time.
Plan is to repeat echo to reevaluate AVR/MR.
A-fib is overall rate controlled for now. Agree with low-dose Toprol. With stroke allowing for some permissive hypertension.
Continue ceftriaxone for UTI.
Original Note:
Today's Communication / Plan
-
follow neuro status closely
repeat imaging as per neuro
holding on OAC for now
echo
PT/OT
Impression / Plan
-
Primary Dredge Deckhand: Dr. Nicolasa Miles
Assessment:
Presentation with nausea/vomiting, weakness
UTI
Possible pneumonia
Atrial fibrillation with controlled ventricular response, new diagnosis of unclear duration
L sided weakness, CVA alert, s/p TNK 11/17/24
R SAH by head CT
Bioprosthetic aortic valve replacement with septal myomectomy 2016, [facility]
Moderate MR by echo 11/2023
Hypertension
History of remote SVT
LAFB
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
Chronic anemia
Chronic hyponatremia
History of UTIs
ECHO 11/16/23: EF 55 to 60%, moderate concentric LVH, stage III diastolic dysfunction, MAC, at least moderate MR, status post bioprosthetic AVR with peak/mean gradients 23/12 mmHg, mild AR, moderate TR, PAP 45 mmHg
Plan:
-She presented with nausea/vomiting and weakness which is historically how she has presented with UTI in the past. Her UA was abnormal and there was also possible pneumonia by chest x-ray and she is being treated with antibiotic therapy
-She was also noted on admission to be in A-fib with controlled ventricular response resulting in cardiology consultation 11/17. Eliquis was ordered to start 11/17 PM, however prior to this patient developed acute left-sided weakness and stroke alert
was promptly called. After discussion with [place] neurology, she was given TNK. Post TNK noted to have forehead hematoma and repeat head CT with evidence of R sided SAH compared with prior from 11/13. head CT this morning pending. neurology
following. remains neurologically intact, oriented x3, reports L sided weakness improved from yesterday
-toprol 12.5mg daily added, may need to hold to allow for degree of HTN per neurology
-holding on initiation of eliquis at present. eventual OAC when ok per neuro
-repeat echo pending when stable to reassess EF and degree of MR
-TSH WNL
-PT/OT
-d/w nursing
Progress Note - Dredge Deckhand
Subjective
Date of Service: November 18, 2024
reports improvement in L sided weakness s/p TNK
Objective
Labs:
11/18/24 04:27
11/18/24 04:27
Labs
Hgb 11.6 g/dL (12.0-16.0) L 11/18/24 04:27
Hct 33.5 % (37.0-47.0) L 11/18/24 04:27
Plt Count 142 10^3/uL (130-400) 11/18/24 04:27
PT 14.1 Sec (11.4-14.6) 11/18/24 04:27
INR 1.04 11/18/24 04:27
APTT 34.3 Sec (23.4-35.0) 11/18/24 04:27
Sodium 131 mmol/L (135-145) L 11/18/24 04:27
Potassium 4.4 mmol/L (3.5-5.1) 11/18/24 04:27
BUN 21 mg/dl (7-17) H 11/18/24 04:27
Creatinine 0.7 mg/dL (0.6-1.0) 11/18/24 04:27
Glucose 103 mg/dl (70-99) H 11/18/24 04:27
Vital Signs and I&O:
Vital Signs
Temp Pulse Resp BP Pulse Ox
97.6 F 69 16 156/71 87
11/18/24 03:39 11/18/24 06:30 11/18/24 06:30 11/18/24 06:30 11/18/24 05:15
Vital Signs
Temp Pulse Resp BP Pulse Ox
97.6 F 69 16 156/71 87
11/18/24 03:39 11/18/24 06:30 11/18/24 06:30 11/18/24 06:30 11/18/24 05:15
Intake & Output
11/15/24 11/16/24 11/17/24 11/18/24
07:59 07:59 07:59 07:59
Intake Total 1080 / 1080
Output Total 650 / 650
Balance 430 / 430
Physical Exam
Physical Exam
GEN: No distress, awake, alert, oriented x3
HEENT: supple, anicteric, mmm, eomi
LUNGS: CTA B/L, no wheezes/rales
CV: Irreg, S1/S2, + murmur
ABD: soft, BS+, NT/ND
EXT: No cyanosis, clubbing, edema
NEURO: L sided weakness/neglect
SKIN: Warm, pink, dry. No rash. Dime sized forehead hematoma
[2024-11-18] MEDS: TOPROL XL 12.5 MG PO (08:23)
[2024-11-18] MEDS: MUCINEX 600 MG PO ×2 (08:23→20:36)
[2024-11-18] MEDS: VIBRAMYCIN 100 MG PO ×2 (08:23→20:36)
[2024-11-18] MEDS: TYLENOL 650 MG PO (08:25)
--- NOTE | 2024-11-18 08:33 | CON.NEURO ---
Neuro Assessment/Plan
Assessment
Head CT from this AM rev'd with patient, family, ICU resident - right temporal small hemorrhage, confined to intraparenchymal. Decreased density right occipital from last night's stroke. chronic left frontal stroke
11/17 CTA head showing right P2 segmental occlusion, distal reconstitution.
CT perfusion showing 5cc core, 25 cc penumbra in right hemisphere
84 year old woman new onset Afib, stroke 11/17 evening, suspected embolic etiology, s/p TNK, initial partial response to TNK, with some hemorrhagic conversion. Patient thankfully appears well. On head CT hemorrhagic conversion, which has worsened on
this AM CT but still small. As long as not worsening she should do well from the bleed.
Will repeat head CT this afternoon, and again tomorrow AM - as long as bleed is stable, tentatively starting ASA 81 tomorrow, and I would consider starting Eliquis in 2 months based on weighing risk and benefits of more ischemic vs hemorrhagic
stroke.
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
L homonymous hemianopsia, she does not drive
Consultation
Order
Date of Consultation: 11/18/24
Requesting Provider: Annette Alexandra
Reason for Consult: Stroke
Subjective/Objective
Subjective Data
Date of Service: November 18, 2024
She is an 84 year old woman presented with nausea, vomiting, generalized weakness. She slid out of a chair onto the floor at home. initially admitted for pneumonia. Found to have new onset afib, was planned to start Eliquis
Last night stroke alert called at 8:18 pm, LKN 7 pm. NIHSS was 6 (left arm 2, left leg 2, visual field, ataxia) patient treated with TNK. 1:50 AM patient developed half dollar coin sized hematoma on forehead, though her left sided deficits at the
time were improved. stat CT scan obtained, concern for right temporoparietal SAH. Repeat head CT ~7am showing enlarging bleed
Objective Data
Vital Signs
Temp Pulse Resp BP Pulse Ox
36.4 C 63 14 146/74 97
11/18/24 08:04 11/18/24 08:23 11/18/24 08:00 11/18/24 08:23 11/18/24 07:45
Lab Results
11/18/24 04:27
11/18/24 04:27
PT 14.1 Sec (11.4-14.6) 11/18/24 04:27
INR 1.04 11/18/24 04:27
APTT 34.3 Sec (23.4-35.0) 11/18/24 04:27
Sodium 131 mmol/L (135-145) L 11/18/24 04:27
Potassium 4.4 mmol/L (3.5-5.1) 11/18/24 04:27
BUN 21 mg/dl (7-17) H 11/18/24 04:27
Glucose 103 mg/dl (70-99) H 11/18/24 04:27
Calcium 9.9 mg/dl (8.4-10.2) 11/18/24 04:27
LDL Cholesterol, Calc 94 mg/dl 11/18/24 04:27
Patient Allergies
No Known Allergies Allergy (Verified 11/16/24 12:47)
CVA Assessment
NIH Stroke Score
Level of Consciousness: 0 - Alert
LOC Questions: 0-Answers both correctly
LOC Commands: 0-Performs both correctly
Best Horizontal Gaze: 0-Normal
Visual Gore: 2=Full hemianopia
Facial Palsy: 1=Minor paralysis
Motor - Right Arm: 0=No drift 10 seconds
Motor - Left Arm: 1=Drift < 10 seconds
Motor - Right Le-No drift 5 seconds
Motor - Left Le-Drift < 5 seconds
Limb Ataxia: 0-Absent
Sensation: 0-Normal
Best Language: 0-No aphasia
Dysarthria: 0-Normal
Extinction and Inattention: 1-Sensory inattention
NIH Total Score:: 6
Physical Exam
-
Left homonymous hemianopsia
Left nasolabial flattening
LUE/LE 5-/5,
sensation intact to touch, with left sensory/motor neglect
Medications
-
Active Medications
Generic Name Dose Route Start Last Admin
Trade Name Freq PRN Reason Stop Dose Admin
Acetaminophen 650 mg 11/16/24 16:57 11/18/24 08:25
Acetaminophen 325 Mg Tablet PO 12/14/24 16:56 650 mg
Q4HPRN PRN Administration
Pain OR if temp > 101 F
Ceftriaxone Sodium 1,000 mg 11/17/24 16:00 11/17/24 16:01
Ceftriaxone 1000 Mg / 10 Ml Vial IV 1,000 mg
Q24H CRISTAL Administration
Doxycycline Hyclate 100 mg 11/17/24 12:00 11/18/24 08:23
Doxycycline 100 Mg Capsule PO 100 mg
Q12 CRISTAL Administration
Guaifenesin 600 mg 11/16/24 20:00 11/18/24 08:23
Guaifenesin 600 Mg Extended Release Tablet PO 12/14/24 19:59 600 mg
Q12 CRISTAL Administration
Metoprolol Succinate 12.5 mg 11/17/24 12:00 11/18/24 08:23
Metoprolol 12.5 Mg Extended Release Dose (1/2 Of 25 Mg Xl Tablet) PO 12/15/24 11:59 12.5 mg
DAILY CRISTAL Administration
Sodium Chloride 0 flush 11/16/24 18:00
Sodium Chloride 0.9% (Flush) Syringe IV 12/14/24 17:59
PER PROTOCOL CRISTAL
Sterile Water 10 ml 11/17/24 16:00 11/17/24 16:01
Sterile Water For Injection 10 Ml Vial IV 12/15/24 15:59 10 ml
Q24H CRISTAL Administration
Home Medications
�Medication �Instructions �Recorded
losartan 25 mg tablet 25 mg PO DAILY #1 tab 02/27/22
ibuprofen 200 mg tablet (Advil) 400 mg PO BIDPRN PRN arthritis pain 11/14/23
omeprazole 20 mg capsule,delayed 20 mg PO QPMPRN PRN reflux 11/14/23
release
--- NOTE | 2024-11-18 08:48 | PTCARENOTE ---
Addendum entered by Liya Chau RN 11/18/24 08:57:
patient c/o mild headache. Dr Gotti updated at bedside. tylenol administered
Original Note:
report received. handoff NIH and neuro check completed with off going RN. transported to CT scan. received call from radiologist Dr Noriega that bleed worsening since prior scan. tiger text sent to bricklayer and neurologist to update. Neurology at
bedside. he discussed patient status and scans with patient and son and daughter at bedside. assessments, NIH and neuro checks per work list. monitor afib, hematoma forehead and around left forearm IV unchanged. lungs clear, crackles at bases.
passed initial swallow, able to take oral medications without signs aspiration. TT to ST to update and who will evaluate this am. no void at time of assessments. orders received for neuro checks now to be Q1hour per neurologist. call sorto in reach
[2024-11-18 11:26] LABS: Glycohemoglobin (HgbA1c) 5.1 % (4.0-5.6)
--- NOTE | 2024-11-18 11:33 | PTOTSP ---
Dysphagia Evaluation
No signs of oral/pharyngeal dysphagia observed during clinical bedside swallowing evaluation though risk elevated given left sided weakness and inattention.
Informal signs of mild dysphonia and cognitive linguistic changes to attention/memory observed. Full cognitive linguistic evaluation warranted as able/appropriate.
Recommend:
1. IDDSI 7 Regular, Thin Liquids
2. Medications as best tolerated
3. Supervision and assist as needed with PO intake
4. Strategies: alternate sips/bites to assist with oral clearance, check for oral clearance on left
5. Cognitive linguistic evaluation (factors that may impact acutely include UTI, stroke w/ TNK <24 hours ago).
--- NOTE | 2024-11-18 11:35 | W.PN.HOSP.TC ---
Today's Communication/Plan
-
See PN
Assessment / Plan
Assessment / Plan
84yo F with PMHx of HTN, GERD came with nausea and vomiting, found UTI and new onset Afib. Later developed L sided wakness and CTA showed occlusion of the proximal right P2 segment of the posterior cerebral artery and diminutive caliber of the left
vertebral artery with occlusion of the feet 3 and V4 segments with distal reconstitution.
ALso with concern for multifocal pneumonia
A/P:
#UTI
Ucx with E.coli sensitive to Ceftriaxone
#Multifocal pneumonia
COVID-19 and influenza PCR neg
Negative urine Ag for LEgionella and S.pneumonia
COnt Doxy as addition to Rocephin
#Acute CVA
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
Most likely 2/2 A.fib
s/p TPN with hemorrhagic conversion
Followed by Neurologist: small bleed to be followed with serial CT head. Eventual ASA with transition to anticoagulation
statin
neurologic checks
ICU monitoring
RN AMBULATORY
#NEw onset Afib
#SVT
#Moderate MR
Echo
Cardio consult
TSH WNL
telemetry and rhythm control
#Chronic hyponatremia
follow BMP
#Essential HTN
#GERD
cont hoem meds when able
DVT ppx SCDs
DNR/DNI
I have spent at least 59min reviewing chart, test results, communication with consultants and providing direct patient care
Anticipated Discharge: > 48 hours
Subjective/Interval History
-
Date of Service: November 18, 2024
Objective Data
-
Labs:
Laboratory Results
11/18/24
04:27
WBC 9.7
Hgb 11.6 L
Hct 33.5 L
Plt Count 142
PT 14.1
INR 1.04
APTT 34.3
Sodium 131 L
Potassium 4.4
Chloride 105
Carbon Dioxide 22
BUN 21 H
Creatinine 0.7
Glucose 103 H
Calcium 9.9
Vital Signs:
Vital Signs
Temp Pulse Resp BP Pulse Ox
97.5 F 65 19 119/60 96
11/18/24 11:05 11/18/24 11:00 11/18/24 11:00 11/18/24 11:00 11/18/24 11:05
I&O
11/17/24 11/18/24 11/19/24
06:59 06:59 06:59
Intake Total 1080 / 1080 480 / 480
Output Total 650 / 650
Balance 430 / 430 455 / 455
Review of Systems
-
History Source: Patient
All other systems: Reviewed and negative
Physical Exam
-
General: No Apparent Distress and Comfortable
HEENT: Other (forehead with hematoma)
Respiratory: Clear to Auscultation
Cardiac: Regular Rhythm
GI: Soft, Nontender and Nondistended
Musculoskeletal: No Clubbing, No Cyanosis and No Edema
Neuro: Awake, Alert, Oriented, AO x 3, No Motor Deficits and Other (R eyelid droop, chronic as per patient)
Psych: Calm
--- NOTE | 2024-11-18 12:16 | PTCARENOTE ---
Addendum entered by Liya Chau RN 11/18/24 13:19:
patient nih per work list. assisted with 2 staff and rolling walker to bedside commode. voided small amount urine, PVR per work list.
Original Note:
when patient awakened for 1200 neuro check, patient with expressive aphasia, cable systems installer and neurologist updated by kathy cifuentes, NIH completed. aphasia resolved when provider at bedside. no new orders at this time.
[2024-11-18] MEDS: STERILE WATER FOR INJECTION 10 ML IV (15:16)
[2024-11-18] MEDS: ROCEPHIN 1000 MG IV (15:16)
--- NOTE | 2024-11-18 16:08 | CM ---
IV/Rocephin, CT of brain shows new R subarachnoid hemorrhage. Discharge POC: Previous therapy note rec was HH. Will await further therapy review s/p new hemorrhage this am.
--- NOTE | 2024-11-18 18:07 | PTCARENOTE ---
reassessed@1600. taken to CT scan, returned without incident. tiger text to land reclamation specialist and neurologist re: completed and resulted CT scan. neuro checks per work list.
[2024-11-19] VITALS (18 sets, daily range): BP systolic 95–151; BP diastolic 60–124
[2024-11-19 04:42] LABS: Hematocrit 32.2 % (37.0-47.0); Hemoglobin 11.3 g/dL (12.0-16.0); Mean Corp Hgb Conc. 35.1 g/dL (33.0-37.0); Mean Corpuscular Volume 84.1 fL (81.0-99.0); Nucleated Red Blood Cells % 0 %; Platelet Count 148 10^3/uL (130-400); Red Cell Dist. Width 14.1 % (11.5-14.5)
[2024-11-19 05:09] LABS: ALT (SGPT) 13 U/L (0-35); AST (SGOT) 28 U/L (14-36); Albumin 3.4 g/dl (3.5-5.0); Alkaline Phosphatase 72 U/L (38-126); Blood Urea Nitrogen 18 mg/dl (7-17); Calcium 10.1 mg/dl (8.4-10.2); Carbon Dioxide 24 mmol/L (22-30); Chloride 104 mmol/L (98-107); Estimated Creatinine Clearance 61 ml/min; Glucose 89 mg/dl (70-99); Magnesium 1.7 mg/dl (1.6-2.3); Potassium 4.4 mmol/L (3.5-5.1); Sodium 130 mmol/L (135-145); Total Protein 6.2 g/dl (6.3-8.2); eGFR > 60.00
--- NOTE | 2024-11-19 06:07 | PTCARENOTE ---
Pt received at 19:00, handoff NIH completed with offgoing nurse. NIH = 8. Ox3. L sided weakness, ataxia, facial droop, field cut, decreased sensation, and neglect. Throughout shift ptt using L hand more often and improved gait with stand and pivot
to get on the BSC. Bruising on forehead marked and unchanged. L FA bruising at IV site unchanged. Afib 50s-60s. Palpable pulses. [place]na urine. +bowel sounds, no BM. Safe environment maintained, call sorto within reach.
--- NOTE | 2024-11-19 08:35 | W.PN.CARDCBS ---
Today's Communication / Plan
-
Anticoagulation recommendations as per neurology, essentially waiting approximately 2 months to initiate DOAC. Timing of aspirin initiation as per neurology and primary service.
Rates remain reasonably well-controlled on low-dose metoprolol, continue
Hypertension/blood pressure target as per neurology in this acute setting post CVA and post lytic
Impression / Plan
-
Primary Clinic Clerk: Dr. Nicolasa Miles
Assessment:
Presentation with nausea/vomiting, weakness
UTI
Possible pneumonia
Atrial fibrillation with controlled ventricular response, new diagnosis of unclear duration
L sided weakness, CVA alert, s/p TNK 11/17/24
R SAH by head CT
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
Moderate MR by echo 11/2023
Hypertension
History of remote SVT
LAFB
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
Chronic anemia
Chronic hyponatremia
History of UTIs
- ECHO 11/16/23: EF 55 to 60%, moderate concentric LVH, stage III diastolic dysfunction, MAC, at least moderate MR, status post bioprosthetic AVR with peak/mean gradients 23/12 mmHg, mild AR, moderate TR, PAP 45 mmHg
- Echocardiogram 11/18/2024: Ejection fraction 60 to 65%. Normal-sized left atrium with mildly dilated right atrium, mild to moderate mitral regurgitation. Bioprosthetic aortic valve finds mild aortic regurgitation with peak and mean gradients
of 9 and 5 mmHg respectively.
Plan:
She presented with nausea vomiting and weakness as well as newly diagnosed atrial fibrillation.
During this hospital stay she is diagnosed with acute CVA: 11/17 CTA head showing right P2 segmental occlusion, distal reconstitution. CT perfusion showing 5cc core, 25 cc penumbra in right hemisphere
s/p TNK, initial partial response to TNK.
Subsequent CT findings small hemorrhagic conversion.
She is planned for repeat CT of the head today to assess ongoing hemorrhage
Neurology recommends initiating aspirin 81 mg as early as today and holding off on Eliquis for 2 months.
Heart rates in atrial fibrillation well-controlled. Currently on Toprol-XL 12.5 mg daily, but would be okay to hold from a cardiology standpoint to allow for targeted degree of blood pressure post CVA if recommended by neurology
Discussed with patient, ICU nursing and with her family who is at bedside. All of her questions answered.
Total time spent today was 52 minutes in preparing to see the patient, seeing the patient and coordination of care. This included review of recent laboratory evaluations, cardiact testing, imaging studies, primary care rtecords, specialty
consultations, hospital records, as well as personally interviewing and examining the patient, which included discussion of their tests, review/ordering medications, and communicating with other healthcare professionals and also treatment planning
as well as counseling.
Progress Note - Clinic Clerk
Subjective
Date of Service: November 19, 2024
She is awake and alert. She tells me that she is feels that she is back to baseline neurologically.
Her family feels that she still has some mild left upper extremity weakness but that her left facial droop has resolved
Objective
Labs:
11/19/24 04:25
11/19/24 04:25
Labs
Hgb 11.3 g/dL (12.0-16.0) L 11/19/24 04:25
Hct 32.2 % (37.0-47.0) L 11/19/24 04:25
Plt Count 148 10^3/uL (130-400) 11/19/24 04:25
PT 14.1 Sec (11.4-14.6) 11/18/24 04:27
INR 1.04 11/18/24 04:27
APTT 34.3 Sec (23.4-35.0) 11/18/24 04:27
Sodium 130 mmol/L (135-145) L 11/19/24 04:25
Potassium 4.4 mmol/L (3.5-5.1) 11/19/24 04:25
BUN 18 mg/dl (7-17) H 11/19/24 04:25
Creatinine 0.6 mg/dL (0.6-1.0) 11/19/24 04:25
Glucose 89 mg/dl (70-99) 11/19/24 04:25
Vital Signs and I&O:
Vital Signs
Temp Pulse Resp BP Pulse Ox
97.6 F 66 13 129/99 97
11/18/24 23:35 11/19/24 08:00 11/19/24 08:00 11/19/24 08:00 11/18/24 18:01
Vital Signs
Temp Pulse Resp BP Pulse Ox
97.6 F 66 13 129/99 97
11/18/24 23:35 11/19/24 08:00 11/19/24 08:00 11/19/24 08:00 11/18/24 18:01
Intake & Output
11/17/24 11/18/24 11/19/24 11/20/24
06:59 06:59 06:59 06:59
Intake Total 1080 / 1080 840 / 840
Output Total 650 / 650 575 / 575
Balance 430 / 430 265 / 265
Physical Exam
Physical Exam
Well-appearing no acute distress laying in bed, smiling
Irregularly irregular, normal S1 and S2, no S3 no S4 is a grade 1/6 apical holosystolic murmur no rubs. PMI is normally placed
Lungs are clear to auscultation bilaterally without wheezes rales or rhonchi
Extremities show no clubbing cyanosis or edema
Abdomen soft nontender nondistended with normoactive bowel sounds
Neurologically there is minimal weakness at the left upper extremity otherwise grossly nonfocal to my exam
[2024-11-19] MEDS: MUCINEX 600 MG PO ×2 (09:09→20:17)
[2024-11-19] MEDS: VIBRAMYCIN 100 MG PO (09:09)
[2024-11-19] MEDS: TOPROL XL 12.5 MG PO (09:09)
[2024-11-19] MEDS: MAGNESIUM SULFATE 50 IV (09:10)
--- NOTE | 2024-11-19 09:38 | PTCARENOTE ---
0700 Assumed care. Patient in bed. AAO x3 [place]
NIH done with change of shift. No change noted
--- NOTE | 2024-11-19 12:51 | W.PN.INTV ---
Today's Communication / Plan
Recommendations
- Discontinue doxycycline
- Patient stable for transfer out of ICU, parking technician service will sign off, please call as needed
Assessment
-
84 yo F newly diagnosed atrial fibrillation not on anticoagulation, admitted for UTI and possible pneumonia, experienced left sided weakness most concerning for acute ischemic stroke, s/p TNK administration, complicated by intraparenchymal bleed in
brain.
# Acute stroke, suspect embolic with underlying A-fib, post TNK with subsequent hemorrhagic conversion
- She had left sided weakness and the first CT evaluation found ischemic evidence for stroke.
- TNK was given, with improvement in neurological status
- However, intraparenchymal bleed occurred as a result of TNK.
- Serial CT have showed minimal increase in the size of intracranial bleed. Patient hemodynamically stable. Facial droop has in fact improved today and left arm drift is essentially unchanged. Overall feeling well. Protecting airway as well.
-Neurology service on case.
# Forehead hematoma
- Most likely due to TNK administration
- Clinically improving
# Atrial fibrillation
- On metoprolol this admission
- Timing of initiation of anticoagulation, defer to cardiology and neurology service
# UTI
- Ceftriaxone
#? ARANZA PNA
- Clinically no symptoms and chest x-ray, most recent, not suggestive of sarah consolidation
- Discontinue doxycycline
Critical Care time [42] mins -- The patient is admitted for acute critical illness for the treatment of vital organ failure and/or prevention of further life-threatening conditions. Total care includes time spent in review of history, physical exam,
medications, hemodynamic/ventilator parameters, laboratory data, imaging and discussion with house staff, pharmacy, respiratory therapy, set up mold technician, and nursing.
Subjective Dataa
Subjective Data
Date of Service:
Date of Service: November 19, 2024
Subjective:
Patient comfortably sitting in bed in no acute distress.
Review of Systems
Genitourinary: Other (All 14 systems reviewed and negative except as stated above in the history of present illness.)
Objective Data
Data Reviewed
Vital Signs / I&O / Oxygen:
Vital Signs
Temp Pulse Resp BP Pulse Ox
97.7 F 61 13 149/124 97
11/19/24 09:01 11/19/24 09:09 11/19/24 08:00 11/19/24 09:09 11/18/24 18:01
Intake and Output
11/18/24 11/19/24 11/20/24
06:59 06:59 06:59
Intake Total 1080 / 1080 840 / 840
Output Total 650 / 650 575 / 575
Balance 430 / 430 265 / 265
SaO2 97
Physical Exam
General: Comfortable
HEENT: Normocephalic and Other (Minimal left-sided facial droop looks much less pronounced today. Otherwise cranial nerve exam normal)
Cardiovascular: S1-S2
Respiratory: Clear
GI: Soft and Non Distended
Neurology: Awake, Alert and Other (Mild left upper extremity drift noted unchanged)
Skin: Warm
Labs/Micro/Reports
Lab Data
11/19/24 04:25
11/19/24 04:25
Microbiology
11/16/24 13:57 Urine Urine Culture - Final
Escherichia coli
11/16/24 00:00 Urine Legionella Urinary Antigen - Final
Negative for Legionella pneumophila Serogroup 1 antigen.
A negative result does not rule out the possiblity of
Legionella infection due to other serogroups or species of
Legionella. Clinical correlation is recommended.
11/16/24 00:00 Urine Streptococcus pneumoniae Antigen (M - Final
Negative for Streptococcus pneumoniae antigen.
A negative result does not exclude infection with
Streptococcus pneumoniae. Clinical correlation is
recommended.
--- NOTE | 2024-11-19 13:14 | W.PN.HOSP.TC ---
Today's Communication/Plan
-
transfer to [facility]
PT/OT
cont Abx and plan for d/c in 24-48h
Assessment / Plan
Assessment / Plan
84yo F with PMHx of HTN, GERD came with nausea and vomiting, found UTI and new onset Afib. Later developed L sided wakness and CTA showed occlusion of the proximal right P2 segment of the posterior cerebral artery and diminutive caliber of the left
vertebral artery with occlusion of the feet 3 and V4 segments with distal reconstitution.
ALso with concern for multifocal pneumonia
A/P:
#UTI
Ucx with E.coli sensitive to Ceftriaxone
#Multifocal pneumonia
COVID-19 and influenza PCR neg
Negative urine Ag for Legionella and S.pneumonia
COnt Doxy as addition to Rocephin
#Acute CVA
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
#L homonymous hemianopsia
Most likely 2/2 A.fib
s/p TPN with hemorrhagic conversion
Followed by Neurologist: small bleed to be followed with serial CT head. Eventual ASA with transition to anticoagulation in the terms of months as per cardiology
statin
neurologic checks
ICU monitoring
CORE DRILLER
#NEw onset Afib
#SVT
#Moderate MR
Echo
Cardio consult
TSH WNL
telemetry and rhythm control
#Chronic hyponatremia
follow BMP
#Essential HTN
#GERD
cont hoem meds when able
DVT ppx SCDs
DNR/DNI
I have spent at least 59min reviewing chart, test results, communication with consultants and providing direct patient care
Anticipated Discharge: 24 - 48 hours
Subjective/Interval History
-
Date of Service: November 19, 2024
Objective Data
-
Labs:
Laboratory Results
07/19/25
04:25
WBC 7.0
Hgb 11.3 L
Hct 32.2 L
Plt Count 148
Sodium 130 L
Potassium 4.4
Chloride 104
Carbon Dioxide 24
BUN 18 H
Creatinine 0.6
Glucose 89
Calcium 10.1
Total Bilirubin 0.7
AST 28
ALT 13
Alkaline Phosphatase 72
Vital Signs:
Vital Signs
Temp Pulse Resp BP Pulse Ox
97.7 F 61 13 149/124 97
11/19/24 09:01 11/19/24 09:09 11/19/24 08:00 11/19/24 09:09 11/18/24 18:01
I&O
11/18/24 11/19/24 11/20/24
06:59 06:59 06:59
Intake Total 1080 / 1080 840 / 840
Output Total 650 / 650 575 / 575
Balance 430 / 430 265 / 265
Review of Systems
-
History Source: Patient
All other systems: Reviewed and negative
Physical Exam
-
General: No Apparent Distress
HEENT: Other (bruise on forehead, decreasing swelling)
Respiratory: Clear to Auscultation
Cardiac: Irregular Rhythm
Neuro: Awake, Alert, Oriented and AO x 3
Psych: Calm
[2024-11-19] MEDS: COZAAR 25 MG PO (16:41)
[2024-11-19] MEDS: ROCEPHIN 1000 MG IV (16:42)
[2024-11-19] MEDS: STERILE WATER FOR INJECTION 10 ML IV (16:42)
--- NOTE | 2024-11-19 17:30 | PTCARENOTE ---
Received pt from ICU via wheelchair. Family member at bedside. Pt able to stand and ambulate to bed with assist x1 and RW. NIH performed at bedside with THREAD REELER. AAOx3. No complaints of pain. Visible bruise on forehead, sacrum assessed and intact. Pt
verbalized understanding of call sorto. Call sorto within close reach. Will continue to monitor.
[2024-11-19] MEDS: TYLENOL 650 MG PO (18:18)
--- NOTE | 2024-11-19 22:24 | W.PN.NEURO.1 ---
Today's Communication / Plan
-
start ASA in AM
may symptomatically worsen as cerebral edema as max cerebral edema typically 3-5 days after stroke
looks like she threw a new clot to right cerebellum not seen on prior CT vs it just taking longer to show;
consider CARLA to determine risk of throwing more clots and benefits of sooner anticoagulation vs I would typically wait ~8 weeks after a hemorrhagic conversion to start Eliquis
Neuro Assessment/Plan
Assessment
Head CT from this AM rev'd with patient, family, ICU resident - right temporal small hemorrhage, confined to intraparenchymal. Decreased density right occipital from last night's stroke. chronic left frontal stroke
11/17 CTA head showing right P2 segmental occlusion, distal reconstitution.
CT perfusion showing 5cc core, 25 cc penumbra in right hemisphere
84 year old woman new onset Afib, stroke 11/17 evening, suspected embolic etiology, s/p TNK, initial partial symptomatic response to TNK, with some hemorrhagic conversion. Patient thankfully appears well. On head CT 11/18 hemorrhagic conversion, which
slightly worsened.
11/19 the bleeds are stable; the area infarcted demonstrating cerebral edema, thankfully no midline shift or suggestion of elevated ICPand new 1.5 cm acute infarct right cerebellar hemisphere.
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
L homonymous hemianopsia, she does not drive
Subjective/Objective
Subjective Data
Date of Service: November 19, 2024
doing well, feels a little stronger
Objective Data
Vital Signs
Temp Pulse Resp BP Pulse Ox
36.8 C 89 18 143/80 94
11/19/24 19:00 11/19/24 19:00 11/19/24 19:00 11/19/24 19:00 11/19/24 19:00
Lab Results
11/19/24 04:25
11/19/24 04:25
PT 14.1 Sec (11.4-14.6) 11/18/24 04:27
INR 1.04 11/18/24 04:27
APTT 34.3 Sec (23.4-35.0) 11/18/24 04:27
Sodium 130 mmol/L (135-145) L 11/19/24 04:25
Potassium 4.4 mmol/L (3.5-5.1) 11/19/24 04:25
BUN 18 mg/dl (7-17) H 11/19/24 04:25
Glucose 89 mg/dl (70-99) 11/19/24 04:25
Calcium 10.1 mg/dl (8.4-10.2) 11/19/24 04:25
LDL Cholesterol, Calc 94 mg/dl 11/18/24 04:27
Patient Allergies
No Known Allergies Allergy (Verified 11/16/24 12:47)
Physical Exam
-
Left homonymous hemianopsia
Left nasolabial flattening
LUE/LE 5-/5,
sensation intact to touch, with left sensory/motor neglect
[2024-11-20] VITALS (7 sets, daily range): BP systolic 115–135; BP diastolic 59–82
[2024-11-20] MEDS: MUCINEX 600 MG PO ×2 (09:04→20:56)
[2024-11-20] MEDS: COZAAR 25 MG PO (09:04)
[2024-11-20] MEDS: ASPIR LOW (ENTERIC COATED) 81 MG PO (09:04)
[2024-11-20] MEDS: TOPROL XL 12.5 MG PO (09:05)
--- NOTE | 2024-11-20 10:56 | W.PN.CARDCBS ---
Today's Communication / Plan
-
for CARLA tomorrow
Impression / Plan
-
Primary Silk Presser: Dr. Nicolasa Miles
Assessment:
Presentation with nausea/vomiting, weakness
UTI
Possible pneumonia
Atrial fibrillation with controlled ventricular response, new diagnosis of unclear duration
L sided weakness, CVA alert, s/p TNK 11/17/24
R SAH by head CT
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
Moderate MR by echo 11/2023
Hypertension
History of remote SVT
LAFB
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
Chronic anemia
Chronic hyponatremia
History of UTIs
- ECHO 11/16/23: EF 55 to 60%, moderate concentric LVH, stage III diastolic dysfunction, MAC, at least moderate MR, status post bioprosthetic AVR with peak/mean gradients 23/12 mmHg, mild AR, moderate TR, PAP 45 mmHg
- Echocardiogram 11/18/2024: Ejection fraction 60 to 65%. Normal-sized left atrium with mildly dilated right atrium, mild to moderate mitral regurgitation. Bioprosthetic aortic valve finds mild aortic regurgitation with peak and mean gradients
of 9 and 5 mmHg respectively.
Plan:
She presented with nausea vomiting and weakness as well as newly diagnosed atrial fibrillation.
During this hospital stay she is diagnosed with acute CVA: 11/17 CTA head showing right P2 segmental occlusion, distal reconstitution. CT perfusion showing 5cc core, 25 cc penumbra in right hemisphere
s/p TNK, initial partial response to TNK.
Subsequent CT findings small hemorrhagic conversion.
Most recent CT from November 19, 2024 finds that the bleeds are stable, the infarcted area demonstrates cerebral edema without midline shift, there is a new 1.5 cm acute infarct at the right cerebellar hemisphere.
Given concern over what appears to be a new cerebellar infarct neurology is requesting transesophageal echo to help determine timing of starting full anticoagulation
Typically they would wait 8 weeks however if CARLA shows ongoing high risk such as presence of a left atrial appendage thrombus, they would initiate oral anticoagulation sooner.
*Will plan for transesophageal echo tomorrow
*Would not plan for CV given uncertainty of when it will be safest to start OAC given hemorrhagic conversion of CVA
Heart rates in atrial fibrillation well-controlled. Currently on Toprol-XL 12.5 mg daily.
Maintain Toprol-XL 12.5 mg daily
Hypertension
Blood pressure is well-controlled with blood pressures and in adequate range poststroke.
Maintain losartan 25 mg daily and Toprol-XL 12.5 mg daily.
Defer to neurology if they prefer more hypertensive blood pressure ranges.
TT'ed with neurology to discuss CARLA
I met with and explained rec for CARLA to her two grandsons
All questions answered.
Total time spent today was 50 minutes in preparing to see the patient, seeing the patient and coordination of care. This included review of recent laboratory evaluations, cardiact testing, imaging studies, primary care rtecords, specialty
consultations, hospital records, as well as personally interviewing and examining the patient, which included discussion of their tests, review/ordering medications, and communicating with other healthcare professionals and also treatment planning
as well as counseling.
Progress Note - Silk Presser
Subjective
Date of Service: November 20, 2024
Denies CP, SOB, palps, dizziness
Objective
Labs:
11/19/24 04:25
11/19/24 04:25
Labs
Hgb 11.3 g/dL (12.0-16.0) L 11/19/24 04:25
Hct 32.2 % (37.0-47.0) L 11/19/24 04:25
Plt Count 148 10^3/uL (130-400) 11/19/24 04:25
PT 14.1 Sec (11.4-14.6) 11/18/24 04:27
INR 1.04 11/18/24 04:27
APTT 34.3 Sec (23.4-35.0) 11/18/24 04:27
Sodium 130 mmol/L (135-145) L 11/19/24 04:25
Potassium 4.4 mmol/L (3.5-5.1) 11/19/24 04:25
BUN 18 mg/dl (7-17) H 11/19/24 04:25
Creatinine 0.6 mg/dL (0.6-1.0) 11/19/24 04:25
Glucose 89 mg/dl (70-99) 11/19/24 04:25
Vital Signs and I&O:
Vital Signs
Temp Pulse Resp BP Pulse Ox
98.0 F 82 17 135/82 95
11/20/24 07:19 11/20/24 09:05 11/20/24 07:19 11/20/24 09:05 11/20/24 07:19
Vital Signs
Temp Pulse Resp BP Pulse Ox
98.0 F 82 17 135/82 95
11/20/24 07:19 11/20/24 09:05 11/20/24 07:19 11/20/24 09:05 11/20/24 07:19
Intake & Output
11/18/24 11/19/24 11/20/24 11/21/24
06:59 06:59 06:59 06:59
Intake Total 1080 / 1080 840 / 840 700 / 700
Output Total 650 / 650 575 / 575
Balance 430 / 430 265 / 265 700 / 700
Physical Exam
Physical Exam
Well-appearing no acute distress laying in bed, smiling
Irregularly irregular, normal S1 and S2, no S3 no S4 is a grade 1/6 apical holosystolic murmur no rubs. PMI is normally placed
Lungs are clear to auscultation bilaterally without wheezes rales or rhonchi
Extremities show no clubbing cyanosis or edema
Abdomen soft nontender nondistended with normoactive bowel sounds
Neurologically there is minimal weakness at the left upper extremity otherwise grossly nonfocal to my exam
--- NOTE | 2024-11-20 12:25 | W.PN.HOSP.TC ---
Today's Communication/Plan
-
CARLA in AM
D/C to rehab afterwards
Assessment / Plan
Assessment / Plan
84yo F with PMHx of HTN, GERD came with nausea and vomiting, found UTI and new onset Afib. Later developed L sided wakness and CTA showed occlusion of the proximal right P2 segment of the posterior cerebral artery and diminutive caliber of the left
vertebral artery with occlusion of the feet 3 and V4 segments with distal reconstitution. found LARGE CHRONIC TRANSCORTICAL ISCHEMIC INFARCT in the inferomedial RIGHT OCCIPITAL LOBE. received TPA and developed hemoorrhagic conversion. Pending CARLA to
determine timing to start anticoagulation. PT/OT recommended rehab
ALso with concern for multifocal pneumonia/UTI
A/P:
#Acute CVA
#LARGE CHRONIC TRANSCORTICAL ISCHEMIC INFARCT in the inferomedial RIGHT OCCIPITAL LOBE
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
#L homonymous hemianopsia
#intraparenchymal hemorrhage in the right hypothalamus and temporal lobe
Most likely 2/2 A.fib
s/p TPN with hemorrhagic conversion
Followed by Neurologist: small bleed to be followed with serial CT head. started ASA with transition to anticoagulation in the terms of months as per cardiology based on CARLA, that is planned for 11/21/24
statin
neurologic checks
ROOF SERVICE TECHNICIAN recommended diet
#UTI
Ucx with E.coli sensitive to Ceftriaxone
#Multifocal pneumonia
COVID-19 and influenza PCR neg
Negative urine Ag for Legionella and S.pneumonia
COnt Doxy as addition to Rocephin
#NEw onset Afib
#SVT
#Moderate MR
Echo
Cardio consult
TSH WNL
telemetry and rhythm control
#Chronic hyponatremia
follow BMP
#Essential HTN
#GERD
cont home meds when able
DVT ppx SCDs
DNR/DNI
I have spent at least 59min reviewing chart, test results, communication with consultants and providing direct patient care
Anticipated Discharge: 24 - 48 hours
Subjective/Interval History
-
Date of Service: November 20, 2024
Objective Data
-
Vital Signs:
Vital Signs
Temp Pulse Resp BP Pulse Ox
97.7 F 66 16 128/68 95
11/20/24 11:11 11/20/24 11:11 11/20/24 11:11 11/20/24 11:11 11/20/24 11:11
I&O
11/19/24 11/20/24 11/21/24
06:59 06:59 06:59
Intake Total 840 / 840 700 / 700
Output Total 575 / 575
Balance 265 / 265 700 / 700
Review of Systems
-
History Source: Patient
All other systems: Reviewed and negative
Physical Exam
-
General: No Apparent Distress
HEENT: PERRLA
Respiratory: Clear to Auscultation
GI: Soft, Nontender and Nondistended
Skin: Warm
Neuro: Awake, Alert, Oriented and AO x 3
Psych: Calm
[2024-11-20] MEDS: ROCEPHIN 1000 MG IV (16:26)
[2024-11-20] MEDS: STERILE WATER FOR INJECTION 10 ML IV (16:26)
[2024-11-21] VITALS (9 sets, daily range): BP systolic 96–144; BP diastolic 43–95; PULSE 61–64; O2SAT 90–96
[2024-11-21 06:37] LABS: Hematocrit 31.1 % (37.0-47.0); Hemoglobin 10.7 g/dL (12.0-16.0); Mean Corp Hgb Conc. 34.4 g/dL (33.0-37.0); Mean Corpuscular Volume 83.8 fL (81.0-99.0); Nucleated Red Blood Cells % 0 %; Platelet Count 161 10^3/uL (130-400); Red Cell Dist. Width 14.2 % (11.5-14.5)
[2024-11-21 07:01] LABS: Blood Urea Nitrogen 22 mg/dl (7-17); Calcium 9.4 mg/dl (8.4-10.2); Carbon Dioxide 24 mmol/L (22-30); Chloride 103 mmol/L (98-107); Estimated Creatinine Clearance 52 ml/min; Glucose 96 mg/dl (70-99); Potassium 3.8 mmol/L (3.5-5.1); Sodium 132 mmol/L (135-145); eGFR > 60.00
[2024-11-21] MEDS: ASPIR LOW (ENTERIC COATED) 81 MG PO (08:56)
[2024-11-21] MEDS: MUCINEX 600 MG PO ×2 (08:56→20:23)
[2024-11-21] MEDS: COZAAR 25 MG PO (08:56)
[2024-11-21] MEDS: TOPROL XL 12.5 MG PO (08:56)
--- NOTE | 2024-11-21 09:45 | W.PN.CARDCBS ---
Addendum entered and electronically signed by Nicolasa Miles MD 11/21/24 14:04:
I saw and examined the patient.
The Quality Eng's note was reviewed and I agree with the note.
Comment: General: Well developed, well nourished in NAD.
Heart: Non displaced PMI, RRR, no murmurs, No S3, S4, no rubs.
Lungs: Clear to auscultation bilaterally, no wheeze, rhonchi, rubs bilaterally,
Decreased breath sounds at the bases
Extremities: No clubbing, cyanosis or edema bilaterally.
Neuro: Grossly nonfocal, awake, alert and oriented x3.
Spoke with the patient and her daughter at the bedside. She has atrial fibrillation which is currently rate controlled and also came in with left-sided weakness right occipital lobe infarct. She underwent treatment with TNK. Hemorrhagic
conversion was noted. All imaging reviewed.
She is currently stable.
Continue with good blood pressure control
Continue with lipid control, lipid-lowering intensified. Goal LDL less than 70
Telemetry reviewed
If becomes symptomatic as an outpatient after 30 days of oral anticoagulation consider cardioversion but at this time she remains asymptomatic with atrial fibrillation and would lean towards rate control and oral anticoagulation when able.
Defer to neurology timing of starting oral anticoagulation with Eliquis. At this time it is 30 days. Aspirin for now per neurology.
Plan to go to [facility].
Original Note:
Today's Communication / Plan
-
CARLA has been canceled
Start aspirin 81 mg per neurology today
Will need eventual anticoagulation, timing per neurology with ongoing discussion
Continue Toprol for rate control
Impression / Plan
-
Primary Jewelry Designer: Dr. Nicolasa Miles
Assessment:
Presentation 11/16/2024 with nausea/vomiting, weakness
UTI
Possible pneumonia
Atrial fibrillation with controlled ventricular response, new diagnosis of unclear duration
L sided weakness with right occipital lobe infarct, stroke alert, s/p TNK 11/17/24
Hemorrhagic conversion (right intraparenchymal hemorrhage) by head CT
Bioprosthetic aortic valve replacement with septal myomectomy 2016, [facility]
Moderate MR by echo 11/2023
Hypertension
History of remote SVT
LAFB
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
Chronic anemia
Chronic hyponatremia
History of UTIs
- ECHO 11/16/23: EF 55 to 60%, moderate concentric LVH, stage III diastolic dysfunction, MAC, at least moderate MR, status post bioprosthetic AVR with peak/mean gradients 23/12 mmHg, mild AR, moderate TR, PAP 45 mmHg
- Echocardiogram 11/18/2024: Ejection fraction 60 to 65%. Normal-sized left atrium with mildly dilated right atrium, mild to moderate mitral regurgitation. Bioprosthetic aortic valve finds mild aortic regurgitation with peak and mean gradients
of 9 and 5 mmHg respectively.
Plan:
She presented 11/16/2024 with nausea vomiting and weakness as well as newly diagnosed atrial fibrillation.
During this hospital stay she was a stroke alert and was diagnosed with acute right hemispheric stroke: 11/17 CTA head showing right P2 segmental occlusion, distal reconstitution. CT perfusion showing 5cc core, 25 cc penumbra in right hemisphere
s/p TNK, initial partial response to TNK.
Subsequent CT findings small hemorrhagic conversion.
Most recent CT from November 19, 2024 finds that the bleeds are stable, the infarcted area demonstrates cerebral edema without midline shift, there is a new 1.5 cm acute infarct at the right cerebellar hemisphere.
Initial plan was for CARLA given concern over what appears to be a new cerebellar infarct. However after ongoing discussion with primary service and neurology there is no current plan for CARLA as patient will need OAC regardless. Exact timing to be
determined by neurology given hemorrhagic conversion.
Plan now is ASA 81 mg only as on 11/20/2024
LDL of 94. Patient would likely benefit from initiation of statin with goal LDL less than 70 given stroke
New diagnosis of paroxysmal atrial fibrillation this admission. Unclear duration
Heart rates in atrial fibrillation well-controlled. Currently on Toprol-XL 12.5 mg daily.
Maintain Toprol-XL 12.5 mg daily
No plan for CV given uncertainty of when it will be safest to start OAC given hemorrhagic conversion of CVA. Can be readdressed as outpatient once patient is on and able to tolerate OAC
Hypertension
Blood pressure is well-controlled with blood pressures and in adequate range poststroke.
Maintain losartan 25 mg daily and Toprol-XL 12.5 mg daily.
Defer to neurology if they prefer more hypertensive blood pressure ranges.
Ongoing treatment for UTI with Rocephin
Plan discussed with patient, son at bedside, hospitalist Dr. Min, nursing, Dr Fitch
Progress Note - Jewelry Designer
Subjective
Date of Service: November 21, 2024
Patient seen and examined
Objective
Labs:
11/21/24 06:13
11/21/24 06:13
Labs
Hgb 10.7 g/dL (12.0-16.0) L 11/21/24 06:13
Hct 31.1 % (37.0-47.0) L 11/21/24 06:13
Plt Count 161 10^3/uL (130-400) 11/21/24 06:13
PT 14.1 Sec (11.4-14.6) 11/18/24 04:27
INR 1.04 11/18/24 04:27
APTT 34.3 Sec (23.4-35.0) 11/18/24 04:27
Sodium 132 mmol/L (135-145) L 11/21/24 06:13
Potassium 3.8 mmol/L (3.5-5.1) 11/21/24 06:13
BUN 22 mg/dl (7-17) H 11/21/24 06:13
Creatinine 0.7 mg/dL (0.6-1.0) 11/21/24 06:13
Glucose 96 mg/dl (70-99) 11/21/24 06:13
Vital Signs and I&O:
Vital Signs
Temp Pulse Resp BP Pulse Ox
98.3 F 72 12 142/68 99
11/21/24 07:18 11/21/24 08:56 11/21/24 07:18 11/21/24 08:56 11/21/24 07:18
Vital Signs
Temp Pulse Resp BP Pulse Ox
98.3 F 72 12 142/68 99
11/21/24 07:18 11/21/24 08:56 11/21/24 07:18 11/21/24 08:56 11/21/24 07:18
Intake & Output
11/19/24 11/20/24 11/21/24 11/22/24
06:59 06:59 06:59 06:59
Intake Total 840 / 840 700 / 700 390 / 390
Output Total 575 / 575
Balance 265 / 265 700 / 700 390 / 390
Physical Exam
Physical Exam
GEN: No distress, awake, Ox3
HEENT: supple, anicteric, mmm
LUNGS: CTA, no wheezes/rales
CV: Irregularly irregular, rate controlled, S1/S2, 1/6 syst murmur
ABD: soft, BS+, NT/ND
EXT: No edema, clubbing or cyanosis
NEURO: Mild left-sided weakness
SKIN: No rash
--- NOTE | 2024-11-21 11:05 | W.PN.HOSP.TC ---
Today's Communication/Plan
-
D/C to rehab, CM informed
Assessment / Plan
Assessment / Plan
84yo F with PMHx of HTN, GERD came with nausea and vomiting, found UTI and new onset Afib. Later developed L sided wakness and CTA showed occlusion of the proximal right P2 segment of the posterior cerebral artery and diminutive caliber of the left
vertebral artery with occlusion of the feet 3 and V4 segments with distal reconstitution. found LARGE CHRONIC TRANSCORTICAL ISCHEMIC INFARCT in the inferomedial RIGHT OCCIPITAL LOBE. received TPA and developed hemorrhagic conversion. Neurologist
recommended to start anticoagulation in 30 days, so since no change in mgmt - CARLA was cancelled. Upon initiation of Eliquis ASA should be stoppedPT/OT recommended rehab. Patient is medically stable for d/c after last dose of Rocephin
ALso with concern for multifocal pneumonia/UTI
A/P:
#Acute CVA
#LARGE CHRONIC TRANSCORTICAL ISCHEMIC INFARCT in the inferomedial RIGHT OCCIPITAL LOBE
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
#L homonymous hemianopsia
#intraparenchymal hemorrhage in the right hypothalamus and temporal lobe
Most likely 2/2 A.fib
s/p TPN with hemorrhagic conversion
Followed by Neurologist: small bleed to be followed with serial CT head. started ASA with transition to anticoagulation in the terms of months as per cardiology based on CARLA, that is planned for 11/21/24
statin
neurologic checks
[employer]TER recommended diet
#UTI
Ucx with E.coli sensitive to Ceftriaxone
#Multifocal pneumonia
COVID-19 and influenza PCR neg
Negative urine Ag for Legionella and S.pneumonia
COnt Doxy as addition to Rocephin
#NEw onset Afib
#SVT
#Moderate MR
Echo
Cardio consult
TSH WNL
telemetry and rhythm control
#Chronic hyponatremia
follow BMP
#Essential HTN
#GERD
cont home meds when able
DVT ppx SCDs
DNR/DNI
I have spent at least 39min reviewing chart, test results, communication with consultants, son bedside and providing direct patient care
Anticipated Discharge: Today
Subjective/Interval History
-
Date of Service: November 21, 2024
Objective Data
-
Labs:
Laboratory Results
11/21/24
06:13
WBC 5.8
Hgb 10.7 L
Hct 31.1 L
Plt Count 161
Sodium 132 L
Potassium 3.8
Chloride 103
Carbon Dioxide 24
BUN 22 H
Creatinine 0.7
Glucose 96
Calcium 9.4
Vital Signs:
Vital Signs
Temp Pulse Resp BP Pulse Ox
98.3 F 72 12 142/68 99
11/21/24 07:18 11/21/24 08:56 11/21/24 07:18 11/21/24 08:56 11/21/24 07:18
I&O
11/20/24 11/21/24 11/22/24
06:59 06:59 06:59
Intake Total 700 / 700 390 / 390
Balance 700 / 700 390 / 390
Review of Systems
-
History Source: Patient
All other systems: Reviewed and negative
Physical Exam
-
General: Well Developed
HEENT: Other (mild bruising on forehead, swelling resolved)
Neuro: Awake, Alert, Oriented and AO x 3
Psych: Calm
--- NOTE | 2024-11-21 12:11 | CM ---
Addendum entered by Lexie Turk 11/21/24 15:22:
Authorization approved for [facility] for tomorrow
Updated Eri from [facility] - can accept tomorrow morning
Start date 11/22/24, NRD 11/28/24
Auth approval #: [id number]
updates to phone #: [phone]
updated patient/grandson in room
PLAN: [facility] [place] 11/22
Report #: [phone]
Fax #: [phone]
Original Note:
Patient seen at bedside with daughter Matilde & family
[facility] to [facility]
PM&R consult ordered - spoke with Eri from [facility], referral placed in [facility], bed available tomorrow - will need auth after seen by PT/OT
discussed [facility] - patient/family agreeable
CHRIS NPI #: [id number]
DR. ALVAREZ NPI #: [id number]
PLAN: [facility], PT/OT to [facility] to obtain ins auth
Report #: [id number]
Fax #: [phone]
--- NOTE | 2024-11-21 12:52 | PN.CDI ---
Addendum entered and electronically signed by Addy Min MD 11/21/24 13:19:
radiographic findings irrelevant to progress note
Original Note:
CDI
- -
CDI:
Physician Documentation Request
Admit Date: 11/16/24 15:55
Dear Doctor Mechelle,
Clinical Indicators:
The diagnosis of vasogenic edema was included in the signed head CT.
11/18 (08:48) RN note, 'patient c/o mild headache' (12:16) 'when patient awakened for 1200 neuro check, patient with expressive aphasia...'
11/19 Neurology PN, '...as max cerebral edema typically 3-5 days after stroke'
11/[address] report, 'There is a moderate amount of vasogenic edema in the right temporal lobe surrounding the acute intraparenchymal hemorrhage which appears to have increased since 11/18/2024....large acute ischemic transcortical infarct in the
inferomedial right cerebellar hemisphere containing a large amount of low-attenuation cytotoxic edema.'
NIHSS: 7-11
Please indicate in your progress notes if you are in agreement that the above diagnosis is valid for this patient:
Cerebral edema is a valid diagnosis
Cerebral edema is not a valid diagnosis for this patient
Other, please specify
Use of terms such as suspected, likely, concern for, or probable are acceptable for a diagnosis that is being evaluated, monitored or treated as if it exists and can be coded in the inpatient setting, when documented at the time of discharge.
Thank you,
ERIC Spencer RN
CDI Specialist
available via tiger text
Please use your independent medical judgment in providing your response.
--- NOTE | 2024-11-21 13:27 | CON.MD ---
Consultation - Medical
-
Chief Complaint: Stroke
�
History of Present Illness:�84-year-old right-handed female with PMH (as below) presented to [facility] on 11/16/2024 with generalized weakness and a 10-day history of yellow phlegm production. Vomited 1 day prior to admission. Found to
have E. coli UTI and concern for multifocal pneumonia. Started on ceftriaxone and doxycycline. Found to have new onset atrial fibrillation, started on Eliquis. On 11/17/2024 she had a rapid response for left-sided weakness and left visual field
cut. Patient given TNK. She developed hematoma on the forehead which she notes happened after sliding out of a chair on the ground and hitting her head. CT of the head for subarachnoid hemorrhage in the right temporal parietal lobe. Holding off
on Eliquis anticoagulation for 2 months per neurology, started on aspirin for now.
Overall she is feeling weak in the left side. Denies any vision or swallowing concerns. Denies any bowel or bladder issues. Does not feel any numbness or tingling concerns but notes that somebody told her she had some difficulty with sensation on
the left side. Overall she is feeling better and has no new or worsening symptoms.
�
Past Medical History:�HTN, recurrent UTI, endometrial cancer, breast cancer, CKD, GERD, chronic HFpEF, peripheral neuropathy, intervertebral stenosis
Procedure History:�Aortic valve replacement, cholecystectomy, cataract surgery, bilateral knee replacement
Family History:�None pertinent
�
Social History:�
Functional Level Premorbidly:�Modified independent with all activities�
Functional Level Currently:�Supervision bed mobility, min assist transfers, min assist ambulate 3 steps, min assist ADLs
�
Tobacco:�Denies�
Alcohol:�Denies�
Drug use:�Denies�
�
Lives with:�Alone
24-hour assistance available:�No
Number of floors:�1
# steps to enter:�0
Driving:�No
Occupation:�Retired
�
�
Allergies:�
Allergy/AdvReac Type Severity Reaction Status Date / Time
No Known Allergies Allergy Verified 11/16/24 12:47
�
Review of Systems:�
Constitutional: (x) abNormal _tired
Eye: (x) Normal _
Ear/Nose/Throat: (x) Normal _
Respiratory: (x) Normal _
Cardiovascular: (x) abNormal _new A-fib
Gastrointestinal: (x) Normal _
Genitourinary: (x) Normal _
Musculoskeletal: (x) Normal _
Integumentary: (x) Normal _
Neurologic: (x) abNormal _stroke with left-sided weakness and difficulty walking
Psychiatric: (x) Normal _
Endocrine: (x) Normal _
Hematologic/Lymphatic: (x) Normal _
Allergic/Immunologic: (x) Normal _
�
Medications:�
Active Current Visit Medication List
Category Date Time Status
Acetaminophen [Tylenol] Med 11/16/24 16:57 Active
650 mg PO Q4HPRN PRN
Aspirin Low Dose EC [Aspir Low (Enteric Coated)] Med 11/20/24 08:00 Active
81 mg PO DAILY
Atorvastatin [Lipitor] Med 11/21/24 18:00 Active
20 mg PO QPM
CefTRIAXone [Rocephin] Med 11/17/24 16:00 Active
1,000 mg IV Q24H
Flush (0.9% Sodium Chloride) [Flush (Nss)] Med 11/16/24 18:00 Active
See Dose Instructions IV PER PROTOCOL
Guaifenesin [Mucinex] Med 11/16/24 20:00 Active
600 mg PO Q12
Losartan [Cozaar] Med 11/19/24 17:00 Active
25 mg PO DAILY
Metoprolol Xl [Toprol Xl] Med 11/17/24 12:00 Active
12.5 mg PO DAILY
Sterile Water [Sterile Water For Injection] Med 11/17/24 16:00 Active
10 ml IV Q24H
�
Vitals:�
Temp Pulse Resp BP Pulse Ox
97.6 F 73 12 103/53 98
11/21/24 11:12 11/21/24 11:12 11/21/24 11:12 11/21/24 11:12 11/21/24 11:12
Height 5 ft
Actual Weight 75.2 kg
Body Mass Index (BMI) 32.4
�
Physical Exam:�
General Appearance/Observation: Well-developed, well-nourished female in no apparent distress.�
Pain/Comfort Assessment: Denies�
Mood/Affect: Appropriate�
�
Integumentary/Operative Site:�Has bruising over the left forehead, left medial arm
�� Pressure Ulcer Evaluation: absent over heels.�
�
Eyes: Conjunctiva/Lids: normal��� Pupils: pupils equal round and reactive to light and Accommodation
Ears/Nose/Throat: oral mucosa moist, throat clear.������������ Lips/Teeth/Gums: normal
Cardiovascular: Heart: Irregularly irregular, mechanical click
Pulses: dorsalis pedis 2+ bilaterally�
Respiratory: Respiratory Effort/Chest Expansion: normal������ Auscultation: Clear to auscultation bilaterally
Gastrointestinal: abdomen not tender, no distension, normal abdominal bowel sounds
Genitourinary: No Kate�
Rectal Exam: Deferred�
Extremities:�Edema: Minimal bilateral lower extremity edema�cyanosis: None�Trophic�changes: None
�
Neurology Exam:
Orientation: Alert, Oriented to self, Time, Place�
Memory: Intact for recent medical concerns
Repetition: Intact
Comprehension: Intact
Two step command: Intact
Naming: Intact
-Able to read appropriate time off analog clock on the wall
Cranial Nerves:
�� CNII:�Pupillary light reflex: Intact���Visual Field: Left homonymous hemianopsia
�� CN III, IV, : Extraocular muscles: Intact�
�� CN V:�Facial Sensation�at�Forehead: Intact,�Maxilla: Intact,�Mandible: Intact
�� CN VII:�Facial movement: Left facial droop
�� CN VIII:�Hearing: Normal
�� CN IX/X:�Speech & swallow: Normal,�Position of Uvula: Midline
�� CN XI:�Shoulder shrug: Decreased on left
�� CN XII:�Tongue protrusion: Midline
Sensory:
�� Light touch: Intact in right upper and lower extremities, impaired left upper and lower extremities
�
Reflexes:
�� Biceps: 2+ bilaterally
�� Brachioradialis: 2+ bilaterally
�� Triceps: 2+ bilaterally
�� Patellar: 0 bilaterally
�� Achilles: 0 bilaterally
�� Babinski: Down going bilaterally
�� Clonus: None
�� Mike: Negative bilaterally�
Cerebellar: Dysmetria/Ataxia: Present on the left
Musculoskeletal:Motor: (Manual muscle scale 0-5)�
Muscle SA EF WE EE FF FA HF KE DF EHL PF
Right� 5 5 5 5 5 5 5 5 5 5 5
Left 4 4 4 4 4 4 4 4 4 4 4
�
Tone: Normal in all extremities�
Range of Motion: Passively within normal limits in all extremities�
�
Lab Results
Laboratory Data
11/21/24 06:13
11/21/24 06:13
PT 14.1 Sec (11.4-14.6) 11/18/24 04:27
INR 1.04 11/18/24 04:27
APTT 34.3 Sec (23.4-35.0) 11/18/24 04:27
Total Bilirubin 0.7 mg/dl (0.2-1.3) 11/19/24 04:25
AST 28 U/L (14-36) 11/19/24 04:25
ALT 13 U/L (0-35) 11/19/24 04:25
Alkaline Phosphatase 72 U/L (38-126) 11/19/24 04:25
Total Protein 6.2 g/dl (6.3-8.2) L D 11/19/24 04:25
Albumin 3.4 g/dl (3.5-5.0) L 11/19/24 04:25
�
Diagnostic Results:�as per HPI�
�
Assessment
84 y/o F PMH (HTN, recurrent UTI, endometrial cancer, breast cancer, CKD, GERD, chronic HFpEF) with 11/16/2024 with generalized weakness thought to be related to multifocal pneumonia and E. coli UTI, complicated by 11/17/2024 left hemiparesis and left
visual field cut s/p TNK with right temporal intraparenchymal hemorrhage, right occipital and chronic left frontal strokes with ADL and ambulatory dysfunction.
�
Plan�
PM&R�PT/OT to increase independence with ADLs, improve balance, coordination, endurance, strength, mobility, community reintegration, decreased burden of care on others and family education.�
�
CVA: Secondary prophylaxis with aspirin (for 2 months followed by Eliquis) statin, and blood pressure control (SBP less than 140 and diastolic less than 90 to participate with therapy with hemorrhagic conversion). Continue to monitor neurologic
status.�
Left nondominant hemiparesis: High risk for falls and sliding out of chair/bed. Safety reinforced.�
- Avoid using affected arm to help lift or pull patient as this will cause trauma to the shoulder.
Left Neglect: makes patient at increased risk for falls.� Will need therapy to work on scanning of environment for safe navigation.�
�
HTN: Losartan 25 mg daily, metoprolol XL 12.5 mg daily monitor �
HLD: Statin�
Atrial fibrillation: Holding Eliquis anticoagulation with intraparenchymal hemorrhage and rate control with metoprolol.������������������������������������������
CHF: EF 60-65%, beta domonique, monitor fluid status�
Multifocal pneumonia: On ceftriaxone. Guaifenesin for thick secretions. ���
Normocytic anemia: 10.7 from 11.3 from 11.6 from 12.9. Was 11.5 11/07/2023. Continue to monitor.�
FEN: Mild hyponatremia: Slowly improving 132 from 130 from 131. Was 133 1 year ago.
Psych: Psychology consult.� Monitor mood, adjust medications as needed.�
Skin: monitor for pressure sores/rashes/lesions.�
Pain: acetaminophen or oxycodone as needed.�
Bowel: Colace and Senna, PRN bisacodyl.�
Bladder: Time void, PVRs, PRN straight cath.�
DVT Prophylaxis: Mechanical, not on chemoprophylaxis. Had hemorrhagic transformation of stroke. Please clarify with neurology whether heparin can be used for DVT prophylaxis.
Pulmonary: Incentive spirometry�
Obesity: Continue to counselor/art therapist patient about diet adjustments to control obesity. Body habitus and increased force to move body and extremities causes further difficulty with functional tasks.�
Safety: Continue to reinforce assistance with all transfers.�
Code Status:� DNR�per chart
Dispo�(date/plan/equipment needs): Home with family care.� Social history reviewed.�
Functional and Medical Goals:�Modified Independent with ADL�s, ambulation, transfers�
Discharge Destination:�Acute inpatient rehabilitation
�
Summary of recommendations:
-�Discharge Destination:�Acute inpatient rehabilitation
CVA: Secondary prophylaxis with aspirin (for 2 months followed by [facility]) statin, and blood pressure control (SBP less than 140 and diastolic less than 90 to participate with therapy with hemorrhagic conversion). Continue to monitor neurologic
status.�
Left nondominant hemiparesis: PT OT, safety reinforced.�
Left Neglect: makes patient at increased risk for falls.� Will need therapy to work on scanning of environment for safe navigation.�
DVT Prophylaxis: Mechanical, not on chemoprophylaxis. Had hemorrhagic transformation of stroke. Please clarify with neurology whether heparin can be used for DVT prophylaxis.�
Thank you for allowing me to care for your patient. Please contact me with any questions or concerns.
Consultation
-
Date/Time Consultation Performed: 11/21/24
Requesting Provider: Dr. Addy Min
Performing Provider: Dr. Gio Alvarenga
Reason for Consultation: Stroke
--- NOTE | 2024-11-21 14:09 | W.PN.NEURO.1 ---
Today's Communication / Plan
-
Continue aspirin 81 mg routinely due to patient having newly discovered atrial fibrillation and risk for ischemic injury due to emboli
Would provide replacement for aspirin 30 days after onset of hemorrhage with use of apixaban or other similar agent, not warfarin in order to reduce risk of future ischemic stroke again due to atrial fibrillation. This timeframe represents
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
Continue atorvastatin, advance from current dosing of 20 to a dose of 40 mg daily
Neuro Assessment/Plan
Assessment
Head CT - right temporal small hemorrhage, confined to intraparenchymal. Decreased density right occipital from last night's stroke. chronic left frontal stroke
11/17/2024 CTA head showing right P2 segmental occlusion, distal reconstitution.
CT perfusion showing 5cc core, 25 cc penumbra in right hemisphere
84 year old woman new onset Afib, stroke 11/17/2024 evening, suspected embolic etiology, received TNK, initial partial symptomatic response to TNK, with hemorrhagic conversion.
On head CT 11/18/2024 hemorrhagic conversion, which slightly worsened.
11/19/2024 the bleeds are stable; the area infarcted demonstrating cerebral edema, no midline shift and new 1.5 cm acute infarct right cerebellar hemisphere.
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
Plan
Continue aspirin 81 mg routinely due to patient having newly discovered atrial fibrillation and risk for ischemic injury due to emboli
Would provide replacement for aspirin 30 days after onset of hemorrhage with use of apixaban or other similar agent, not warfarin in order to reduce risk of future ischemic stroke again due to atrial fibrillation. This timeframe represents
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
Continue atorvastatin, advance from current dosing of 20 to a dose of 40 mg daily
Will follow as needed
Subjective/Objective
Subjective Data
Date of Service: November 21, 2024
Objective Data
Vital Signs
Temp Pulse Resp BP Pulse Ox
36.4 C 73 12 103/53 98
11/21/24 11:12 11/21/24 11:12 11/21/24 11:12 11/21/24 11:12 11/21/24 11:12
Lab Results
11/21/24 06:13
11/21/24 06:13
PT 14.1 Sec (11.4-14.6) 11/18/24 04:27
INR 1.04 11/18/24 04:27
APTT 34.3 Sec (23.4-35.0) 11/18/24 04:27
Sodium 132 mmol/L (135-145) L 11/21/24 06:13
Potassium 3.8 mmol/L (3.5-5.1) 11/21/24 06:13
BUN 22 mg/dl (7-17) H 11/21/24 06:13
Glucose 96 mg/dl (70-99) 11/21/24 06:13
Calcium 9.4 mg/dl (8.4-10.2) 11/21/24 06:13
LDL Cholesterol, Calc 94 mg/dl 11/18/24 04:27
Patient Allergies
No Known Allergies Allergy (Verified 11/16/24 12:47)
Data Reviewed
-
CT Head: Report Reviewed and Image Reviewed
Labs: Report Reviewed
Lipid Profile: Report Reviewed
Reviewed with: Physician
Old Records: Summarized
Past History
Past History
ED Past Medical History: CVA
Family History
Family History: Other (Reviewed and noncontributory)
Medications
-
Medications:
Generic Name Dose Route Start Last Admin
Trade Name Freq PRN Reason Stop Dose Admin
Acetaminophen 650 mg 11/16/24 16:57 11/19/24 18:18
Acetaminophen 325 Mg Tablet PO 12/14/24 16:56 650 mg
Q4HPRN PRN Administration
Pain OR if temp > 101 F
Aspirin 81 mg 11/20/24 08:00 11/21/24 08:56
Aspirin 81 Mg (Enteric Coated) Tablet PO 12/18/24 07:59 81 mg
DAILY CRISTAL Administration
Atorvastatin Calcium 20 mg 11/21/24 18:00
Atorvastatin (Lipitor) 20 Mg Tablet PO 12/19/24 17:59
QPM CRISTAL
Ceftriaxone Sodium 1,000 mg 11/17/24 16:00 11/20/24 16:26
Ceftriaxone 1000 Mg / 10 Ml Vial IV 1,000 mg
Q24H CRISTAL Administration
Guaifenesin 600 mg 11/16/24 20:00 11/21/24 08:56
Guaifenesin 600 Mg Extended Release Tablet PO 12/14/24 19:59 600 mg
Q12 CRISTAL Administration
Losartan Potassium 25 mg 11/19/24 17:00 11/21/24 08:56
Losartan 25 Mg Tablet PO 12/17/24 16:59 25 mg
DAILY CRISTAL Administration
Metoprolol Succinate 12.5 mg 11/17/24 12:00 11/21/24 08:56
Metoprolol 12.5 Mg Extended Release Dose (1/2 Of 25 Mg Xl Tablet) PO 12/15/24 11:59 12.5 mg
DAILY CRISTAL Administration
Sodium Chloride 0 flush 11/16/24 18:00
Sodium Chloride 0.9% (Flush) Syringe IV 12/14/24 17:59
PER PROTOCOL CRISTAL
Sterile Water 10 ml 11/17/24 16:00 11/20/24 16:26
Sterile Water For Injection 10 Ml Vial IV 12/15/24 15:59 10 ml
Q24H CRISTAL Administration
--- NOTE | 2024-11-21 14:33 | W.DCSUMMARY ---
Discharge Summary
Discharge Data
Date of Admission: 11/16/24
Date of Discharge: 11/22/24
-
Pending Results: No
Hospital Course
84yo F with PMHx of HTN, GERD came with nausea and vomiting, found UTI and new onset Afib. Later developed L sided wakness and CTA showed occlusion of the proximal right P2 segment of the posterior cerebral artery and diminutive caliber of the left
vertebral artery with occlusion of the feet 3 and V4 segments with distal reconstitution. found LARGE CHRONIC TRANSCORTICAL ISCHEMIC INFARCT in the inferomedial RIGHT OCCIPITAL LOBE. received TPA and developed hemorrhagic conversion. Neurologist
recommended to start anticoagulation in 30 days, so since no change in mgmt - CARLA was cancelled. Upon initiation of Eliquis ASA should be stoppedPT/OT recommended rehab. Patient is medically stable for d/c after last dose of Rocephin
ALso with concern for UTI, pneumonia completed 5 days of Rocephin with no respiratory or urinary symptoms. Curtain Worker discontinued doxy. recommend outpatient CT chest in 2-4 weeks with pulm. XR without acute pulmonary pathology
I have spent at least 39min reviewing chart, test results, communication with consultants, son bedside and providing direct patient care
Patient was managed for:
#Acute CVA
#LARGE CHRONIC TRANSCORTICAL ISCHEMIC INFARCT in the inferomedial RIGHT OCCIPITAL LOBE
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
#L homonymous hemianopsia
#intraparenchymal hemorrhage in the right hypothalamus and temporal lobe
#UTI
#Multifocal pneumonia ruled out
#NEw onset Afib
#SVT
#Moderate MR
#Chronic hyponatremia
#Essential HTN
#GERD
Discharge Plan
-
Patient Disposition: Acute Rehab Facility
Discharge Diagnosis/Procedures: Stroke
Diet: Low Cholesterol
Referrals:
Katie Lindsay MD [Active, Pulmonary Medicine] - in two to four weeks
Referral Note: CT chest for nodularity seen on CTA neck
Satya Iraheta MD [Active, Cardiology] - in three to four weeks
Referral Note: afib mgmt
Lucila Salgado MD [Family Provider, Family Practice]
Additional Discharge Medication Instructions: cont Aspirin 81mg until start of the ELiquis 5mg BID recommended on 12/21/24
Prescriptions:
New
aspirin 81 mg Tablet,Delayed Release (Dr/Ec)
81 mg PO DAILY Qty: 30 0RF
atorvastatin [Lipitor] 40 mg tablet
40 mg PO QPM Qty: 30 0RF
metoprolol succinate 25 mg Tablet Extended Release 24 Hr
12.5 mg PO DAILY Qty: 30 0RF
polyethylene glycol 3350 17 gram Powder In Packet
17 g PO DAILYPRN PRN (Reason: Constipation) Qty: 30 0RF
sennosides-docusate sodium 8.6-50 mg Tablet
1 tab PO BID Qty: 60 0RF
Continued
losartan 25 mg Tablet
25 mg PO DAILY Qty: 1 0RF
omeprazole 20 mg capsule,delayed release(DR/EC)
20 mg PO QPMPRN PRN (Reason: reflux)
Discontinued
ibuprofen [Advil] 200 mg Tablet
400 mg PO BIDPRN PRN (Reason: arthritis pain)
Discharge Orders:
Discharge Patient (As Directed); Ordered 11/22/24
Ordered By: Addy Min
Discharge Date and Time
Print Language: ESTONIAN
[2024-11-21] MEDS: STERILE WATER FOR INJECTION 10 ML IV (18:21)
[2024-11-21] MEDS: ROCEPHIN 1000 MG IV (18:21)
[2024-11-21] MEDS: MIRALAX 17 GRAMS PO (18:21)
[2024-11-21] MEDS: LIPITOR 40 MG PO (18:21)
[2024-11-21] MEDS: SENOKOT-S 1 TABLET PO (20:23)
--- NOTE | 2024-11-22 02:27 | DOWNTIME ---
There was a [employer] Client Extension Associate Downtime on 11/22/2024 from 0100 to 11/22/2024 at 0220. Downtime documentation of patient's care, including medication administrations, has been reconciled in the electronic record per guidelines. Refer to the
patient's paper chart under the miscellaneous tab to see printed paper medication records and downtime forms.
[2024-11-22 02:48] VITALS: BP 141/70
[2024-11-22 07:15] VITALS: BP 124/60
[2024-11-22] MEDS: ASPIR LOW (ENTERIC COATED) 81 MG PO (09:01)
[2024-11-22] MEDS: COZAAR 25 MG PO (09:02)
[2024-11-22] MEDS: MIRALAX 17 GRAMS PO (09:02)
[2024-11-22] MEDS: MUCINEX 600 MG PO (09:02)
[2024-11-22] MEDS: SENOKOT-S 1 TABLET PO (09:02)
[2024-11-22] MEDS: TOPROL XL 12.5 MG PO (09:03)
--- NOTE | 2024-11-22 10:42 | W.PN.HOSP.TC ---
Today's Communication/Plan
-
Medically stable for d/c. constipation but asymptomatic - cont Laxatives, no concern for need for inpatient stay for that
Assessment / Plan
Assessment / Plan
84yo F with PMHx of HTN, GERD came with nausea and vomiting, found UTI and new onset Afib. Later developed L sided wakness and CTA showed occlusion of the proximal right P2 segment of the posterior cerebral artery and diminutive caliber of the left
vertebral artery with occlusion of the feet 3 and V4 segments with distal reconstitution. found LARGE CHRONIC TRANSCORTICAL ISCHEMIC INFARCT in the inferomedial RIGHT OCCIPITAL LOBE. received TPA and developed hemorrhagic conversion. Neurologist
recommended to start anticoagulation in 30 days, so since no change in mgmt - CARLA was cancelled. Upon initiation of Eliquis ASA should be stopped/OT recommended rehab. Patient is medically stable for d/c after last dose of Rocephin
ALso with concern for multifocal pneumonia/UTI
A/P:
#Acute CVA
#LARGE CHRONIC TRANSCORTICAL ISCHEMIC INFARCT in the inferomedial RIGHT OCCIPITAL LOBE
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
#L homonymous hemianopsia
#intraparenchymal hemorrhage in the right hypothalamus and temporal lobe
Most likely 2/2 A.fib
s/p TPN with hemorrhagic conversion
Followed by Neurologist: small bleed to be followed with serial CT head. started ASA with transition to anticoagulation in the terms of months as per cardiology based on CARLA, that is planned for 11/21/24
statin
neurologic checks
RAIL SWITCH OPERATOR recommended diet
#Constipation
Abd soft, not painful
cont Laxatives
Attempt enema
#UTI
Ucx with E.coli sensitive to Ceftriaxone
#Multifocal pneumonia
COVID-19 and influenza PCR neg
Negative urine Ag for Legionella and S.pneumonia
COnt Doxy as addition to Rocephin
#NEw onset Afib
#SVT
#Moderate MR
Echo
Cardio consult
TSH WNL
telemetry and rhythm control
#Chronic hyponatremia
follow BMP
#Essential HTN
#GERD
cont home meds when able
DVT ppx SCDs
DNR/DNI
I have spent at least 39min reviewing chart, test results, communication with consultants, son bedside and providing direct patient care
Anticipated Discharge: Today
Subjective/Interval History
-
Date of Service: November 22, 2024
Objective Data
-
Vital Signs:
Vital Signs
Temp Pulse Resp BP Pulse Ox
97.3 F 60 14 124/60 92
11/22/24 07:15 11/22/24 09:02 11/22/24 07:15 11/22/24 09:02 11/22/24 07:15
I&O
11/21/24 11/22/24 11/23/24
06:59 06:59 06:59
Intake Total 390 / 390 180 / 180
Balance 390 / 390 180 / 180
Review of Systems
-
History Source: Patient
All other systems: Reviewed and negative
Abdomen/GI: Reports Constipated
Physical Exam
-
General: No Apparent Distress
HEENT: Normocephalic
GI: Soft, Nontender and Nondistended
Skin: Warm
Neuro: Awake, Alert, Oriented and AO x 3
Psych: Calm
[2024-11-22 11:06] VITALS: BP 93/41
[2024-11-22] MEDS: FLEET MINERAL OIL ENEMA 133 ML RECTAL (11:12)
--- NOTE | 2024-11-22 11:44 | CM ---
Patient seen at bedside
IMM explained & signed. In chart
Start date 11/22/24, NRD 11/28/24
Auth approval #: [id number]
updates to phone #: [phone]
PLAN: [facility] 11/22
Report #: [phone]
Fax #: [phone]
[2024-11-22 15:00] VITALS: BP 106/46
[2024-11-22] MEDS: TYLENOL 650 MG PO (15:08)
--- NOTE | 2024-11-22 16:29 | W.PN.CARDCBS ---
Today's Communication / Plan
-
Start Eliquis when safe from neuro standpoint
Impression / Plan
-
Primary Manager Document Control: Dr. Nicolasa Miles
Assessment:
Presentation 11/16/2024 with nausea/vomiting, weakness
UTI
Possible pneumonia
Atrial fibrillation with controlled ventricular response, new diagnosis of unclear duration
L sided weakness with right occipital lobe infarct, stroke alert, s/p TNK 11/17/24
Hemorrhagic conversion (right intraparenchymal hemorrhage) by head CT
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
Moderate MR by echo 11/2023
Hypertension
History of remote SVT
LAFB
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
Chronic anemia
Chronic hyponatremia
History of UTIs
- ECHO 11/16/23: EF 55 to 60%, moderate concentric LVH, stage III diastolic dysfunction, MAC, at least moderate MR, status post bioprosthetic AVR with peak/mean gradients 23/12 mmHg, mild AR, moderate TR, PAP 45 mmHg
- Echocardiogram 11/18/2024: Ejection fraction 60 to 65%. Normal-sized left atrium with mildly dilated right atrium, mild to moderate mitral regurgitation. Bioprosthetic aortic valve finds mild aortic regurgitation with peak and mean gradients
of 9 and 5 mmHg respectively.
Plan:
She presented 11/16/2024 with nausea vomiting and weakness as well as newly diagnosed atrial fibrillation.
During this hospital stay she was a stroke alert and was diagnosed with acute right hemispheric stroke: 11/17 CTA head showing right P2 segmental occlusion, distal reconstitution. CT perfusion showing 5cc core, 25 cc penumbra in right hemisphere
s/p TNK, initial partial response to TNK.
Subsequent CT findings small hemorrhagic conversion.
Most recent CT from November 19, 2024 finds that the bleeds are stable, the infarcted area demonstrates cerebral edema without midline shift, there is a new 1.5 cm acute infarct at the right cerebellar hemisphere.
Initial plan was for CARLA given concern over what appears to be a new cerebellar infarct. However after ongoing discussion with primary service and neurology there is no current plan for CARLA as patient will need OAC regardless. Exact timing to be
determined by neurology given hemorrhagic conversion.
Plan now is ASA 81 mg only as on 11/20/2024
LDL of 94. Patient would likely benefit from initiation of statin with goal LDL less than 70 given stroke
New diagnosis of paroxysmal atrial fibrillation this admission. Unclear duration
Heart rates in atrial fibrillation well-controlled. Currently on Toprol-XL 12.5 mg daily.
Maintain Toprol-XL 12.5 mg daily
No plan for CV given uncertainty of when it will be safest to start OAC given hemorrhagic conversion of CVA. Can be readdressed as outpatient once patient is on and able to tolerate OAC
Hypertension
Blood pressure is well-controlled with blood pressures and in adequate range poststroke.
Maintain losartan 25 mg daily and Toprol-XL 12.5 mg daily.
Defer to neurology if they prefer more hypertensive blood pressure ranges.
Ongoing treatment for UTI with Rocephin
Progress Note - Manager Document Control
Subjective
Date of Service: November 22, 2024
NAOE. Resting comfortably. No cardiac complaints.
Objective
Labs:
11/21/24 06:13
11/21/24 06:13
Labs
Hgb 10.7 g/dL (12.0-16.0) L 11/21/24 06:13
Hct 31.1 % (37.0-47.0) L 11/21/24 06:13
Plt Count 161 10^3/uL (130-400) 11/21/24 06:13
PT 14.1 Sec (11.4-14.6) 11/18/24 04:27
INR 1.04 11/18/24 04:27
APTT 34.3 Sec (23.4-35.0) 11/18/24 04:27
Sodium 132 mmol/L (135-145) L 11/21/24 06:13
Potassium 3.8 mmol/L (3.5-5.1) 11/21/24 06:13
BUN 22 mg/dl (7-17) H 11/21/24 06:13
Creatinine 0.7 mg/dL (0.6-1.0) 11/21/24 06:13
Glucose 96 mg/dl (70-99) 11/21/24 06:13
Vital Signs and I&O:
Vital Signs
Temp Pulse Resp BP Pulse Ox
97.5 F 63 14 106/46 100
11/22/24 15:00 11/22/24 15:00 11/22/24 15:00 11/22/24 15:00 11/22/24 15:00
Vital Signs
Temp Pulse Resp BP Pulse Ox
97.5 F 63 14 106/46 100
11/22/24 15:00 11/22/24 15:00 11/22/24 15:00 11/22/24 15:00 11/22/24 15:00
Intake & Output
11/20/24 11/21/24 11/22/24 11/23/24
06:59 06:59 06:59 06:59
Intake Total 700 / 700 390 / 390 180 / 180
Balance 700 / 700 390 / 390 180 / 180
Physical Exam
Physical Exam
Gen: NAD, AA
HEENT: NC/AT, sclera anicteric
Neck: No JVD
CV: irregularly irregular, NL s1/s2
Lungs: CTAB
Abd: S/ND
Ext: No LE edema
Skin: Warm, dry
Neuro: L sided weakness
== END 2024-11-22 15:48 | DRG 64 ==
LOC: 3 WEST ACU 15:55
PROVIDERS: Nurse Practitioner Family; Physician Assistant; Registered Nurse; ADMITTING PHYSICIAN Hospitalist; ATTENDING PHYSICIAN Internal Medicine; CONSULT PHYSICIAN Internal Medicine; CONSULT PHYSICIAN Internal Medicine Cardiovascular Disease; CONSULT PHYSICIAN Physical Medicine & Rehabilitation; EMERGENCY PHYSICIAN Emergency Medicine; FAMILY PHYSICIAN Family Medicine; OTHER PHYSICIAN Psychiatry & Neurology Clinical Neurophysiology
PROC: 3E03316 Introduction of Recombinant Human-activated Protein C into Peripheral Vein, Percutaneous (ICD-10-PCS; 2024-11-18)
DX: I63.9 Cerebral infarction, unspecified (principal); I61.1 Nontraumatic intracerebral hemorrhage in hemisphere, cortical; J18.9 Pneumonia, unspecified organism; N39.0 Urinary tract infection, site not specified; I47.10 Supraventricular tachycardia, unspecified; E87.1 Hypo-osmolality and hyponatremia; I13.0 Hypertensive heart and chronic kidney disease with heart failure and stage 1 through stage 4 chronic kidney disease, or unspecified chronic kidney disease; I50.32 Chronic diastolic (congestive) heart failure; K52.0 Gastroenteritis and colitis due to radiation; G81.94 Hemiplegia, unspecified affecting left nondominant side; R41.4 Neurologic neglect syndrome; T45.615A Adverse effect of thrombolytic drugs, initial encounter; I48.91 Unspecified atrial fibrillation; K21.9 Gastro-esophageal reflux disease without esophagitis; N18.30 Chronic kidney disease, stage 3 unspecified; H53.462 Homonymous bilateral field defects, left side; Z66 Do not resuscitate; Z85.42 Personal history of malignant neoplasm of other parts of uterus; Z85.3 Personal history of malignant neoplasm of breast; G62.9 Polyneuropathy, unspecified; K59.00 Constipation, unspecified; Z87.440 Personal history of urinary (tract) infections; Z95.3 Presence of xenogenic heart valve; Z90.710 Acquired absence of both cervix and uterus; D63.1 Anemia in chronic kidney disease; I48.0 Paroxysmal atrial fibrillation; Y84.2 Radiological procedure and radiotherapy as the cause of abnormal reaction of the patient, or of later complication, without mention of misadventure at the time of the procedure; B96.20 Unspecified Escherichia coli [E. coli] as the cause of diseases classified elsewhere; Z96.653 Presence of artificial knee joint, bilateral; R29.706 NIHSS score 6; E78.5 Hyperlipidemia, unspecified; M19.90 Unspecified osteoarthritis, unspecified site; S00.03XA Contusion of scalp, initial encounter; Z79.899 Other long term (current) drug therapy
CPT/HCPCS: 0042T; 70450; 70496; 70498; 71045; 71046; 74019; 80048; 80053; 80061; 81003; 81015; 82962; 83036; 83735; 84443; 85025; 85027; 85610; 85730; 87077; 87086; 87186; 87449; 87899; 92610; 93005; 93306; 97116; 97162; 97164; 97167; 97168; 99285; J3101; Q9967

== ENCOUNTER → 2024-12-13 10:22 | Outpatient (REF) | payer OTHER, SELFPAY ==
[2024-12-13 10:52] LABS: Hematocrit 29.4 % (37.0-47.0); Hemoglobin 9.5 g/dL (12.0-16.0); Mean Corp Hgb Conc. 32.3 g/dL (33.0-37.0); Mean Corpuscular Volume 88.6 fL (81.0-99.0); Platelet Count 147 10^3/uL (130-400); Red Cell Dist. Width 15.0 % (11.5-14.5)
[2024-12-13 11:37] LABS: ALT (SGPT) 17 U/L (0-35); AST (SGOT) 22 U/L (14-36); Albumin 3.3 g/dl (3.5-5.0); Alkaline Phosphatase 80 U/L (38-126); Blood Urea Nitrogen 22 mg/dl (7-17); Calcium 9.6 mg/dl (8.4-10.2); Carbon Dioxide 27 mmol/L (22-30); Chloride 104 mmol/L (98-107); Glucose 82 mg/dl (70-99); Magnesium 1.8 mg/dl (1.6-2.3); Potassium 4.3 mmol/L (3.5-5.1); Sodium 135 mmol/L (135-145); Total Protein 5.9 g/dl (6.3-8.2); eGFR > 60.00
== END ==
LOC: OLABWHC 10:22
PROVIDERS: ATTENDING PHYSICIAN Family Medicine
DX: I63.9 Cerebral infarction, unspecified (principal); E78.5 Hyperlipidemia, unspecified
CPT/HCPCS: 36415; 80053; 83735; 85027

== ENCOUNTER → 2024-12-28 10:39 | Outpatient (REF) | payer OTHER, SELFPAY ==
[2024-12-28 11:43] LABS: Blood Urea Nitrogen 22 mg/dl (7-17); Calcium 9.6 mg/dl (8.4-10.2); Carbon Dioxide 30 mmol/L (22-30); Chloride 102 mmol/L (98-107); Glucose 81 mg/dl (70-99); HDL Cholesterol 47 mg/dl; LDL Cholesterol, Calculated 44 mg/dl; Potassium 4.3 mmol/L (3.5-5.1); Sodium 136 mmol/L (135-145); Very Low Density Lipoprotein 10 mg/dl (0-30); eGFR > 60.00
== END ==
LOC: OLABWHC 10:39
PROVIDERS: ATTENDING PHYSICIAN Family Medicine
DX: E78.5 Hyperlipidemia, unspecified (principal); I10 Essential (primary) hypertension
CPT/HCPCS: 36415; 80048; 80061; 83880

== ENCOUNTER → 2024-12-30 09:58 | Outpatient (REF) | payer OTHER, SELFPAY ==
[2024-12-30 10:40] LABS: Hematocrit 32.3 % (37.0-47.0); Hemoglobin 10.5 g/dL (12.0-16.0); Mean Corp Hgb Conc. 32.5 g/dL (33.0-37.0); Mean Corpuscular Volume 87.5 fL (81.0-99.0); Platelet Count 171 10^3/uL (130-400); Red Cell Dist. Width 14.6 % (11.5-14.5)
== END ==
LOC: OLABWHC 09:58
PROVIDERS: ATTENDING PHYSICIAN Family Medicine
DX: E78.5 Hyperlipidemia, unspecified (principal); I10 Essential (primary) hypertension
CPT/HCPCS: 36415; 85027

== ENCOUNTER → 2025-01-04 12:17 | Outpatient (REF) | payer OTHER, SELFPAY ==
[2025-01-04 12:46] LABS: Hematocrit 29.7 % (37.0-47.0); Hemoglobin 9.8 g/dL (12.0-16.0); Mean Corp Hgb Conc. 33.0 g/dL (33.0-37.0); Mean Corpuscular Volume 87.1 fL (81.0-99.0); Nucleated Red Blood Cells % 0 %; Platelet Count 140 10^3/uL (130-400); Red Cell Dist. Width 14.6 % (11.5-14.5)
[2025-01-04 13:23] LABS: Blood Urea Nitrogen 19 mg/dl (7-17); Calcium 9.4 mg/dl (8.4-10.2); Carbon Dioxide 28 mmol/L (22-30); Chloride 102 mmol/L (98-107); Glucose 84 mg/dl (70-99); Potassium 3.7 mmol/L (3.5-5.1); Sodium 133 mmol/L (135-145); Uric Acid 4.8 mg/dl (2.5-6.2); eGFR > 60.00
== END ==
LOC: OLABWHC 12:17
PROVIDERS: ATTENDING PHYSICIAN Family Medicine
DX: I10 Essential (primary) hypertension (principal); I63.9 Cerebral infarction, unspecified
CPT/HCPCS: 36415; 80048; 84550; 85025

== ENCOUNTER → 2025-03-20 16:41 | Outpatient (REF) | payer OTHER, SELFPAY ==
[2025-03-20 17:21] LABS: Hematocrit 32.6 % (37.0-47.0); Hemoglobin 10.8 g/dL (12.0-16.0); Mean Corp Hgb Conc. 33.1 g/dL (33.0-37.0); Mean Corpuscular Volume 82.5 fL (81.0-99.0); Nucleated Red Blood Cells % 0 %; Platelet Count 234 10^3/uL (130-400); Red Cell Dist. Width 14.5 % (11.5-14.5)
[2025-03-20 17:28] LABS: ALT (SGPT) 15 U/L (0-35); AST (SGOT) 26 U/L (14-36); Albumin 3.5 g/dl (3.5-5.0); Alkaline Phosphatase 115 U/L (38-126); Blood Urea Nitrogen 21 mg/dl (7-17); Calcium 9.6 mg/dl (8.4-10.2); Carbon Dioxide 29 mmol/L (22-30); Chloride 96 mmol/L (98-107); Glucose 104 mg/dl (70-99); Potassium 4.0 mmol/L (3.5-5.1); Sodium 129 mmol/L (135-145); Total Protein 7.0 g/dl (6.3-8.2); eGFR > 60.00
== END ==
LOC: OLABWHC 16:41
PROVIDERS: ATTENDING PHYSICIAN Family Medicine
DX: R63.4 Abnormal weight loss (principal); K21.9 Gastro-esophageal reflux disease without esophagitis
CPT/HCPCS: 36415; 80053; 85025